=== PATIENT | female | born 1960 | race Caucasian/White ===

== ENCOUNTER 2023-02-18 20:49 | Outpatient (REF) | payer OTHER, SELFPAY ==
[2023-02-25 14:08] LABS: Age Gdln ACOG Testing Note (.); HPV Aptima Negative (Negative); IGP, Aptima HPV, rfx 16/18,45 Note (.)
== END 2023-02-18 20:50 | disposition home or self-care (01) ==
LOC: LAB 20:49
PROVIDERS: Visit Provider Obstetrics & Gynecology
DX: Z12.4 Encounter for screening for malignant neoplasm of cervix (principal)
CPT/HCPCS: 87624; G0145

== ENCOUNTER 2023-05-21 10:18 | Outpatient (OUT) | payer OTHER, SELFPAY ==
--- NOTE | 2023-05-21 10:21 | XR_ITS ---
[address] [address] Patient Name: DINO DUARTE MRN: [id number] date: 1960 Sex: F Assigned Patient Location: [facility] Current Patient Location: [facility] Accession/Order Number: [id number] Exam Date: 05/21/2023 10:30 Report Date: 05/21/2023 11:19 At the request of: RICHIE COELLO Procedure: XR DEXA axial skeleton EXAMINATION: XR DEXA axial skeleton HISTORY: Screening For Osteoporosis Z13.820 COMPARISON: DEXA bone densitometry 05/10/2021 TECHNIQUE: Dual-energy X-ray absorptiometry (DXA) was performed. FINDINGS: SPINE ANALYSIS: Average bone mineral density is 0.917 g/cm2. T-score (standard deviation relative to young adult mean): -2.2 . +0.4% change since prior study. HIP ANALYSIS: Lowest bone mineral density is within the right femoral neck, 0.708 g/cm2. T-score (standard deviation relative to young adult mean): -2.4 . -3.2% change since prior study. XR/XR DEXA axial skeleton IMPRESSION: World [employer] Classification: Osteopenia - Moderate Fracture Risk Electronically authenticated by: DOUGLAS OMALLEY Date: 05/21/2023 11:19
== END 2023-05-21 10:19 | disposition home or self-care (01) ==
LOC: RAD 10:18
PROVIDERS: PCP Internal Medicine; Visit Provider Obstetrics & Gynecology
DX: M85.80 Other specified disorders of bone density and structure, unspecified site (principal); Z13.820 Encounter for screening for osteoporosis; Z78.0 Asymptomatic menopausal state
CPT/HCPCS: 77080

== ENCOUNTER 2023-10-16 11:21 | Outpatient (OUT) | payer OTHER, SELFPAY ==
[2023-10-16 13:08] LABS: Anion Gap 12.8; BUN Creatinine Ratio 16.7; Bilirubin Total 0.8 mg/dL (0.2-1.0); Carbon Dioxide 28.2 mmol/L (21.0-32.0); Chloride 105 mmol/L (98-107); Estimated GFR (African America >60 (>=60); Estimated GFR (Non-African Ame >60 (>=60); Glucose 99 mg/dL (74-106); Sodium 142 mmol/L (136-145)
[2023-10-16 13:09] LABS: Alanine Aminotransferase 21 U/L (14-59); Albumin Globulin Ratio 1.3; Alkaline Phosphatase 80 U/L (46-116); Aspartate Amino Transferase 15 U/L (15-37); Chol HDL Ratio 2.6; Cholesterol 236 mg/dL (<=200); Globulin 3.1 g/dL; HDL Cholesterol 92 mg/dL (40-60); TSH W/ REFLEX FT4 1.149 uIU/mL (0.358-3.740); Total Protein 7.1 g/dL (6.4-8.2); Triglycerides 105 mg/dL (<=150)
== END 2023-10-16 11:22 | disposition home or self-care (01) ==
LOC: LAB 11:23
PROVIDERS: PCP Internal Medicine; Visit Provider Internal Medicine
DX: Z00.00 Encounter for general adult medical examination without abnormal findings (principal); E66.9 Obesity, unspecified
CPT/HCPCS: 36415; 80053; 80061; 84443

== ENCOUNTER 2024-02-25 19:32 | Outpatient (REF) | payer OTHER, SELFPAY ==
--- OUTSIDE RECORDS SUMMARY | 2024-02-25 19:37 | XMS_ITS | CCD ---
Author Organization [facility] Care Team Providers Care [employer] Black Belt Name Role Phone DR FLAVIO PEACOCK Primary Care Unavailable JONATHAN, DR HUNTER Consulting Unavailable DR FLAVIO PEACOCK Attending Unavailable DR FLAVIO PEACOCK Admitting Unavailable SHAHRAM, DR LUISITO Allison Consulting Unavailable Walter Perrin DO Primary Care Provider Unavail able ALANA BARTON Attending Unavailable TREY ANN Attending UnavailFLAVIO Markham Attending FLAVIO Barfield Attending FLAVIO Barfield Referring TREY Doll Attending Ananth burleson Medications Current Medications Medication Drug Class(es) Dates Sig (Normalized) Sig (Original) 24 hr metFORMIN hydrochloride 500 mg extended release oral tablet (1 source) Biguanide Start: 02-25-2023 End: 02-25-2024 take 1 tablet by mouth once daily at dinner metFORMIN XR (GLUCOPHAGE XR) 500 mg 24 hr tablet Take 1 tablet (500 mg total) by mouth daily with dinner. 0 02/25/2023 02/25/2024 Active sod sulf-pot chloride-mag sulf 1.479-0.188- 0.225 gram tablet (1 source) Start: 09-17-2023 sod sulf-pot chloride-mag sulf 1.479-0.188- 0.225 gram tablet Indications: Encounter for screening colonoscopy Please see instructional sheet given by physicians office. 24 tablet 0 09/17/2023 Active tiZANidine 4 mg oral tablet (1 source) Central alpha-2 Adrenergic Agonist tiZANidine (ZANAFLEX) 4 mg tablet as needed for muscle spasms. 0 Active zonisamide 25 mg oral capsule (1 source) Anti-epileptic Agent Start: 07-14-2023 End: 07-13-2024 take 1 capsule by mouth in the morning zonisamide (ZONEGRAN) 25 mg capsule Take 1 capsule (25 mg total) by mouth in the morning. 0 07/14/2023 07/13/2024 Active Problems Problem Classification Problem Date Documented Da te Episodic/Chronic Other screening for suspected conditions (not mental disorders or infectious disease) (5 sources) Encounter for screening mammogram for malignant neoplasm of breast; Translations: [Patient encounter status] Onset: 08-15-2022 Episodic Residual codes; unclassified (1 source) Family history of malignant neoplasm of other organs or systems; Translations: [FAM HX MALIG NEOPLASM OTH ORGN/SYS] Onset: 08-19-2022 Episodic Results Test Name Value Interpretation Reference Range Facil ity BI MAMMOGRAM SCREENING TOMOS YNTHESIS BILATERALon 10-23-2023 BI MAMMOGRAM SCREENING TOMOSYNTHESIS BILATERAL This is a summary report. The complete report is available in the patient's medical record. If you cannot access the medical record, please contact the sending organization for a detailed fax or copy. EXAMINATION: BI MAMMOGRAM SCREENING TOMOSYNTHESIS BILATERAL CLINICAL HISTORY:screening COMPARISON: August 15, 2022. RESULT: Digital mammography and 3D tomosynthesis of bilateral breasts was performed. Density: Almost entirely fatty [1] Overall appearance is stable. There is no suspicious mass, asymmetry, architectural distortion, or calcification IMPRESSION: BIRADS 1 - Negative Follow-up: Routine Screening Mamm Board Certified Radiologists. Accredited by the ACR and FDA. MAMMOGRAPHY IS VERY IMPORTANT TO YOUR HEALTH. THE [employer] SOCIETY GUIDELINES RECOMMEND THAT WOMEN 40 YEARS OF AGE AND OLDER SHOULD HAVE A MAMMOGRAM EVERY YEAR. A REMINDER LETTER WILL BE SENT AT THE APPROPRIATE TIME. THIS FACILITY UTILIZES A REMINDER SYSTEM TO ENSURE ALL PATIENTS RECEIVE REMINDER NOTIFICATIONS AT THE APPROPRIATE TIME BASED ON THE RECOMMENDATIONS OF THIS EXAM. THIS INCLUDES REMINDERS FOR ROUTINE SCREENING MAMMOGRAMS, DIAGNOSTIC MAMMOGRAMS IN WHICH THE PATIENT IS ASKED TO RETURN FOR ADDITIONAL VIEWS, OR OTHER BREAST IMAGING INTERVENTIONS WHEN APPROPRIATE. THE PATIENT WILL BE PLACED IN THE APPROPRIATE REMINDER SYSTEM INCLUDING A REMINDER AT THE APPROPRIATE TIME FOR ANY PENDING ADDITIONAL VIEWS. TRANSCRIBED BY: ELECTRONICALLY SIGNED BY: Garret Reyes MD Normal Not Available MG MAMM SCREEN 3D ALEKSANDR CADon 08-15-2022 MG MAMM SCREEN 3D ALEKSANDR CAD Patient: RAQUEL DUARTE Exam Date: 08/15/2022 : 1960 Gender:F Ordering : DR FLAVIO PEACOCK M.D. Admission #: [id number] Family : DR DURANEvan COELLO . Order #: [id number] CLICK HERE TO VIEW EXAM RADIOLOGY REPORT PROCEDURE: MAMMOGRAM SCREENING 3D BILATERAL CAD COMPARISON: MG MAMM SCREEN ALEKSANDR W CAD, 03/24/2020. MG MAMM SCREEN ALEKSANDR W CAD, 01/05/2019. DIGITIZED_MAMMO, 02/12/2011. MG MAMM SCREEN 3D ALEKSANDR CAD, 05/10/2021. INDICATIONS: Screening mammography Calculator Name NCI Breast Cancer Risk Assessment Tool 5 Year Breast Cancer Risk 0.90% Lifetime Breast Cancer Risk 4.90% Personal Breast Cancer No Personal Ovarian Cancer No Treatments None Family Cancers Aunt-maternal with brain cancer at age 60. LOCATION: [facility] BREAST COMPOSITION: Heterogeneously dense,which may obscure small masses. FINDINGS: DIAGNOSTIC CATEGORY 1--NEGATIVE. RIGHT BREAST: No significant suspicious finding. No significant change has occurred. LEFT BREAST: No significant suspicious finding. No significant change has occurred. RECOMMENDATIONS: ROUTINE MAMMOGRAM AND CLINICAL EVALUATION IN 12 MONTHS. PLEASE NOTE: A NORMAL MAMMOGRAM DOES NOT EXCLUDE THE POSSIBILITY OF BREAST CANCER. A CLINICALLY SUSPICIOUS PALPABLE LUMP SHOULD BE BIOPSIED. Dictated by: Luisito Parkinson M.D. on 08/16/2022 at 08:45 Approved by: Luisito Parkinson M.D. on 08/16/2022 at 09:29 Normal [facility] Vital Signs Date Time Vital Sign Value Performing Clinician Kierra vela 09-17-2023 14:27040 Body height 152.4 cm Janet CARRILLO Work Phone: [facility] 09-17-2023 14:27-0400 Body mass index (BMI) [Ratio] 29.96 kg/m2 Janet CARRILLO Work Phone: [facility] 09-17-2023 14:-040 Body weight 69.58 kg Janet CARRILLO Work Phone: [facility] 09-17-2023 14:27-0400 Diastolic blood pressure 77 mm[Hg] Janet CARRILLO Work Phone: [facility] 09-17-2023 14:27-0400 Systolic blood pressure 148 mm[Hg] Janet Tayo MUCKING MACHINE OPERATOR-RESOURCE ROOM TEACHER Work Phone: [facility] Encounters Encounter Date Encounter Type Care Provider Facility Start: 11-12-2023 End: 11-12-2023 ambulatory TREY Caroline SETH Not Available Start: 10-23-2023 End: 10-24-2023 ambulatory FLAVIO PEACOCK Not Available Start: 10-16-2023 End: 10-16-2023 ambulatory FLAVIO PEACOCK Not Available Start: 10-06-2023 End: 10-06-2023 ambulatory FLAVIO Melania PEACOCK Not Available Start: 09-26-2023 End: 09-26-2023 ambulatory TREY ANN Not Available Start: 09-17-2023 End: 09-17-2023 Patient encounter procedure Janet Cr MUCKING MACHINE OPERATOR-RESOURCE ROOM TEACHER Work Phone: [facility] Comment on above: Encounter for screen ing colonoscopy (Primary Dx) Start: 07-14-2023 End: 07-14-2023 ambulatory ALANA BARTON Not Available Start: 08-15-2022 End: 08-16-[address] FLAVIO PEACOCK Facility: Plan of Treatment Date Care Activity Detail Author Start: 09-16-2024 Adult BMI Screening Adult BMI Screen ing [facility] Start: 10-10-2023 End: 10-10-2023 Admission to same day surgery center 10/10/2023 10:45 AM EDT - 10/10/2023 11:15 AM EDT Surgery [facility] Surgery [address] [place] [address] Tanika Dunn MD [address] [place] [address] COLONOSCOPY DIAGNOSTIC / SCREENING [29717 (CPT )] [facility] Comment on above: COLONOSCOPY DIAGNOST IC / SCREENING [62871 (CPT )] Start: 10-10-2023 End: 10-10-2023 Colonoscopy flx dx w/collj spec when pfrmd COLONOSCOPY DIAGNOSTIC / SCREENING Screen for colon cancer 10/10/2023 10:45 AM EDT [facility] Start: 10-10-2023 Subsequent hospital visit by physician 10/10/2023 10:45 AM EDT Hospital Encounter [facility] Surgery [address] [place] [id number] Tanika Dunn MD [address] [place] [address] [facility] Start: 10-02-2023 End: 10-02-2023 ambulatory 10/02/2023 2:50 PM EDT Support Visit [facility] - Pre Admit [address] [place] [id number] [facility] - Pre Admit Start: 02-21-2023 COVID-19 Vaccine ( season) COVID-19 Vaccine ( season) [facility] Start: 02-21-2023 Influenza vaccination Influenza Vacc ine [facility] Start: 1982 Screening for malign ant neoplasm of cervix Pap Smear [facility] Start: 1980 DTaP,Tdap and Td Vaccines (1 - Tdap) DTaP,Tdap and Td Vaccines (1 - Tdap) [facility] Start: 09-30-1979 Adult BMI Follow Up Plan Adult BMI Follow Up Plan [facility] Start: 1973 Depression Screening Depression Scre ening [facility] Start: 1973 Tobacco Screening Tobacco Screening [facility] End: 09-16-2024 Colonoscopy Colonoscopy GI Routine Encounter for screening colonoscopy 1 Occurrences starting 09/17/2023 until 09/16/[address] [facility] Work Phone: Comment on above: 1 Occurrences starti ng 09/17/2023 until 09/16/2024 Immunizations Immunization Date Immunization Notes Care Provider Fa cility 05-07-2022 influenza virus vaccine, unspecified formulation Janet Cr MUCKING MACHINE OPERATOR-RESOURCE ROOM TEACHER Work Phone: [facility] Payers Date Payer Category Payer Unknown [facility] [id number] 2023-Present [phone] [address] [place] [address] [id number] 2022 Unknown [id number] 1960 Unknown [id number] 1960 Unknown [id number] 1960 Unknown [id number] 1960 Unknown [id number] 1960 Unknown [id number] 1960 Unknown [id number] 1960 Unknown [id number] 259 Social History Date Type Detail Facility Start: 09-17-2023 Tobacco smoking stat [facility] Ex-smoker [facility] End: 06-23-2011 History of tobacco use Current smoker [facility] End: 06-23-2011 History of tobacco use Cigarette Smoker [facility] Start: 09-17-2023 Tobacco use and exposure Smokeless tobacco non-user [facility] Start: 09-17-2023 Alcohol intake Current drinke r of alcohol (finding) [facility] Start: 08-03-2020 End: 09-17-2023 History of Social function [facility] Start: 08-03-2020 End: 09-17-2023 Tobacco use panel [facility] Unknown [facility] Start: 09-17-2023 Alcohol Comment social [facility] Start: 1960 Sex Assigned At Not on file P [facility] History of Present illness Narrative 09-17-2023 Janet Cr, MUCKING MACHINE OPERATOR-RESOURCE ROOM TEACHER - 09/17/2023 2:30 PM EDT Note Date & Type Note Facility 09-17-2023 History of Presen t illness Narrative Chief Complaint: Colon cancer screening History of Present Illness Raquel Duarte is a 62 y.o. female who presents to the office for colon cancer screening. Her last colonoscopy was in [address] Bronson and was normal. She denies any changes in his bowels including diarrhea, constipation, abdominal pain, melena, hematochezia, unexplained weight loss. There is no family history of colon cancer. Review of Systems Constitutional: Negative for fever and unexpected weight change. HENT: Negative for trouble swallowing. Respiratory: Negative for shortness of breath. Cardiovascular: Negative for chest pain. Gastrointestinal: Negative for nausea, vomiting, abdominal pain, diarrhea, constipation, blood in stool and black tarry stool. Genitourinary: Negative for dysuria and difficulty urinating. Musculoskeletal: Negative for gait problem. Skin: Negative for rash and wound. Neurological: Negative for dizziness, weakness and light-headedness. Hematological: Does not bruise/bleed easily. Psychiatric/Behavioral: Negative for confusion. Past Medical History: Diagnosis Date Migraines Past Surgical History: Procedure Laterality Date HYSTERECTOMY No Known Allergies Current Outpatient Medications: metFORMIN XR (GLUCOPHAGE XR) 500 mg 24 hr tablet, Take 1 tablet (500 mg total) by mouth daily with dinner., Disp: , Rfl: tiZANidine (ZANAFLEX) 4 mg tablet, as needed for muscle spasms., Disp: , Rfl: zonisamide (ZONEGRAN) 25 mg capsule, Take 1 capsule (25 mg total) by mouth in the morning., Disp: , Rfl: sod sulf-pot chloride-mag sulf 1.479-0.188- 0.225 gram tablet, Please see instructional sheet given by physicians office., Disp: 24 tablet, Rfl: 0 Social History Socioeconomic History Marital status: Spouse name: Not on file Number of children: Not on file Years of education: Not on file Highest education level: Not on file Occupational History Not on file Tobacco Use Smoking status: Former Types: Cigarettes Quit date: 2011 Years since quittin.2 Smokeless tobacco: Never Vaping Use Vaping Use: Never used Substance and Sexual Activity Alcohol use: Yes Comment: social Drug use: Never Sexual activity: Defer Other Topics Concern Not on file Social History Narrative Not on file Social Determinants of Health Financial Resource Strain: Not on file Food Insecurity: Not on file Transportation Needs: Not on file Physical Activity: Not on file Stress: Not on file Social Connections: Not on file Interpersonal Safety: Not on file Housing Instability: Not on file Family History Problem Relation Age of Onset Cervical cancer Sister Cerebral aneurysm Son Objective Physical Exam Constitutional: General: She is not in acute distress. Appearance: Normal appearance. She is not ill-appearing. HENT: Head: Normocephalic and atraumatic. Mouth/Throat: Mouth: Mucous membranes are moist. Eyes: Pupils: Pupils are equal, round, and reactive to light. Cardiovascular: Rate and Rhythm: Normal rate. Pulmonary: Effort: Pulmonary effort is normal. No respiratory distress. Abdominal: General: There is no distension. Palpations: Abdomen is soft. Musculoskeletal: General: Normal range of motion. Skin: General: Skin is warm and dry. Neurological: Mental Status: She is alert and oriented to person, place, and time. Mental status is at baseline. Vital Signs: Blood pressure 148/77, height 152.4 cm (5'), weight 69.6 kg (153 lb 6.4 oz). Respiratory Source: No data recorded Admission Weight: Weight: 69.6 kg (153 lb 6.4 oz) Labs No results found for: WBC , HGB , HCT , MCV , PLT No results found for: GLU , CALCIUM , NA , K , CO2 , CL , BUN , CREATININE No results found for: AMYLASE No results found for: LIPASE No results found for: ALT , AST , GGT , ALKPHOS , LABBILI No results found for: INR , PROTIME Assessment Raquel Duarte is a 62 y.o.female who presents to the office for screening colonoscopy. Plan Colonoscopy with possible biopsy and/or polypectomy. Risks, benefits, and alternatives discussed with patient. Educated on bowel evacuation preparation. Patient verbalizes understanding and wishes to proceed. Evaluation included: Preparing to see the patient (e.g., review of tests) Obtaining and/or reviewing separately obtained history Performing a medically appropriate examination and/or evaluation Counseling and educating the patient/family/caregiver Referring and communicating with other health live in caregiver Encounter for screening colonoscopy [Z12.11] [facility] KEE [facility] [place] This note was created with the assistance of a speech recognition program. While intending to generate a timely document that accurately reflects the content of the visit, no guarantee can be provided that every grammatical or spelling mistake has been or will be identified or corrected. Thank you for your understanding. GERARDO Kee 09/17/23 1452 documented in this encounter [employer] Evaluation note Note Date & Type Note Facility Evaluation note Diagnosis Encounter for screening colonoscopy- Primary Screen for colon cancer Special screening for malignant neoplasms, colon documented in this encounter [facility] Instructions Note Date & Type Note Facility Instructions Not on filedocumented in this en counter [facility] Summary Purpose Family History No Family History Records FoundNo Family History Records Found Advance Directives No Advanced Directives Records FoundNo Advanced Directives Records Found Additional Source Comments INFORMATION SOURCE (unrecogn ized section and content) DATE CREATED AUTHOR 08/20/2022 [facility] DATE CREATED AUTHOR AUTHOR'S ORGANIZ ATION 11/15/2023 [facility] EPIC Reason for Visit (unrecogniz ed section and content) Reason Comments Colon Cancer Screening 10 YEAR RECALL Specialty Diagnoses / Procedures Referred By Raine sanchez Referred To Contact General Surgery Diagnoses Encounter for screening for malignant neoplasm of colon Procedures [place] OFFICE OUTPATIENT VISIT 60-74 MINS HIGH MDM AMB REFERRAL TO GENERAL SURGERY Flavio Peacock MD [address] [facility] [address] [place] [address] [place] [address] [place] [id number] Referral ID Status Reason Start Date Expiration Date Visits Re quested Visits Authorized [id number] Closed 08/25/2023 02/21/2024 1 1 Care Teams (unrecognized sec tion and content) Le[employer] Black Belt Relationship Specialty Start Date End Date WasWalter cruz DO PCP - General Family Medicine 01/24/17 FOR RECORDS PERTAINING TO PATIENTS WHO ARE OR HAVE BEEN ENROLLED IN A CHEMICAL DEPENDENCY/SUBSTANCEABUSE PROGRAM, SOME INFORMATION MAY BE OMITTED. This clinical summary was aggregated from multiple sources. Caution should be exercised in using it in the provision of clinical care. This summary normalizes information from multiple sources, and as a consequence, information in this document may materially change the coding, format and clinical context of patient data. In addition, data may be omitted in some cases. CLINICAL DECISIONS SHOULD BE BASED ON THE PRIMARY CLINICAL RECORDS. [employer] [facility]. provides no warranty or guarantee of the accuracy or completeness of information in this document.
[2024-03-01 10:07] LABS: Age Gdln ACOG Testing Note (.); HPV Aptima Negative (Negative); IGP, Aptima HPV, rfx 16/18,45 Note (.)
== END 2024-02-25 19:33 | disposition home or self-care (01) ==
LOC: LAB 19:32
PROVIDERS: PCP Internal Medicine; Visit Provider Obstetrics & Gynecology
DX: Z01.419 Encounter for gynecological examination (general) (routine) without abnormal findings (principal)
CPT/HCPCS: 87624; 88175

== ENCOUNTER 2024-07-14 08:40 | Outpatient (OUT) | payer OTHER, SELFPAY ==
--- NOTE | 2024-07-14 08:43 | MR_ITS ---
[address] [address] Patient Name: DINO DUARTE MRN: [facility]:[id number] date: 1960 Sex: F Assigned Patient Location: MRI Current Patient Location: MRI Accession/Order Number: [id number] Exam Date: 07/14/2024 09:00 Report Date: 07/14/2024 11:53 At the request of: TREY ANN Procedure: MR head/brain wo con EXAM: MR head/brain wo con, MR angio head wo con CLINICAL INDICATION: Intractable Chronic Migraine Without Aura COMPARISON: MRI brain 08/12/2013. TECHNIQUE/PROTOCOL: 1) Standard without and with contrast brain MRI performed. 2) 3D brain MRA performed. 3D reconstructions were performed to evaluate vascular anatomy. CONTRAST: None. FINDINGS: BRAIN: No restricted diffusion, extra-axial fluid collection, hydrocephalus, midline shift, or other mass effect. Intracranial flow voids are maintained. Multiple scattered small hyperintense T2/FLAIR periventricular and subcortical foci are nonspecific. Normal midline structures. Normal marrow signal. No soft tissue abnormalities. Mild scattered paranasal sinus mucosal thickening. Trace bilateral mastoid effusions. VASCULATURE: Intracranial ICAs: Patent bilaterally from the skull base to the carotid terminus. MCAs: Normal bilaterally. ACAs: Normal bilaterally. P-Comms: Visualized bilaterally. Vertebral arteries: Normal to the confluence with the basilar artery. Left dominant vertebral system. Basilar artery: Normal. pad cutter: Normal bilaterally. Aneurysm: None. MR/MR head/brain wo con IMPRESSION: 1. No acute intracranial process. 2. Normal MRA of the head. No intracranial aneurysm. 3. Multiple scattered small hyperintense T2/FLAIR periventricular and subcortical foci are nonspecific and could reflect chronic microvascular angiopathic changes and/or sequela of migraine headaches. Electronically authenticated by: COLIN PANCHAL Date: 07/14/2024 11:53
--- OUTSIDE RECORDS SUMMARY | 2024-07-14 08:52 | XMS_ITS | CCD ---
Author Organization [facility] Care Team Providers Care Pc Technician Name Role Phone DR FLAVIO PEACOCK Primary Care Unavailable JONATHAN, DR HUNTER Consulting Unavailable JONATHAN, DR HUNTER Attending Unavailable JONATHAN, DR HUNTER Admitting Unavailable ZIEBER, DR LUISITO Allison Consulting Unavailable Walter Perrin DO Primary Care Provider Unavail Flavio Lopez MD Primary Care Provider ALANA BARTON Attending SU Doll Attending UnavailFLAVIO Markham Attending Unavailable FLAVIO PEACOCK Attending FLAVIO Barfield Referring Unavailable SU ANN Attending Unavailab SU Oneill Attending Unavailab RICHIE Garza Attending Unavailable SU ANN Attending Helioab SU Oneill Referring Unavailab JUAN Mcdermott Attending Unavailable SU ANN Attending JUAN Mancilla Attending Unavailable Medications Current Medications Medication Drug Class(es) Dates Sig (Normalized) Sig (Original) amoxicillin 875 mg / clavulanate 125 mg oral tablet (3 sources) Penicillin-class Antibacterial Start: 04-20-2024 End: 04-30-2024 take 1 tablet by mouth in the morning amoxicillin-clavul anate (Augmentin) 875-125 MG tablet Indications: Acute non-recurrent pansinusitis Take 1 tablet (875 mg) by mouth in the morning and 1 tablet (875 mg) before bedtime. Do all this for 10 days. 20 tablet 04/20/2024 04/30/2024 Active azithromycin 250 mg oral tablet (3 sources) Macrolide Antimicrobial Start: 06-30-2024 End: 07-05-2024 take 2 tablets by mouth once daily, then take 1 tablet by mouth once daily azithromycin (Zithromax) 250 MG tablet Indications: Acute non-recurrent pansinusitis Take 2 tablets (500 mg) by mouth Daily for 1 day, THEN 1 tablet (250 mg) Daily for 4 days. 6 tablet 06/30/2024 07/05/2024 Active Start: 04-27-2024 End: 05-02-2024 take 2 tablets by mouth once daily, then take 1 tablet by mouth once daily azithromycin (Zithromax) 250 MG tablet Indications: Acute non-recurrent pansinusitis Take 2 tablets (500 mg) by mouth Daily for 1 day, THEN 1 tablet (250 mg) Daily for 4 days. 6 tablet 04/27/2024 05/02/2024 Active 1 ml galcanezumab-gnlm 120 mg/ml auto-injector (10 sources) Start: 02-26-2024 End: 02-25-2025 galcanezumab (Emgality) 120 MG/ML auto-injector Indications: Intractable chronic migraine without aura and without status migrainosus (CMS/HCC) Inject 1 Syringe (120 mg) under the skin every 30 (thirty) days 3 each 3 02/26/2024 02/25/2025 Active 24 hr metFORMIN hydrochloride 500 mg extended release oral tablet (1 source) Biguanide Start: 02-25-2023 End: 02-25-2024 take 1 tablet by mouth once daily at dinner metFORMIN XR (GLUCOPHAGE XR) 500 mg 24 hr tablet Take 1 tablet (500 mg total) by mouth daily with dinner. 0 02/25/2023 02/25/2024 Active methylPREDNISolone (5 sources) Corticosteroid Start: 06-30-2024 End: 07-07-2024 methylPREDNISolone (Medrol Dospak) 4 MG tablets Indications: Acute non-recurrent pansinusitis Follow schedule on package instructions 21 tablet 06/30/2024 07/07/2024 Active Start: 04-20-2024 End: 04-27-2024 methylPREDNISolone (Medrol D ospak) 4 MG tablets Indications: Acute non-recurrent pansinusitis Follow schedule on package instructions 21 tablet 04/20/2024 04/27/2024 Active sod sulf-pot chloride-mag sulf 1.479-0.188- 0.225 gram tablet (1 source) Start: 09-17-2023 sod sulf-pot chloride-mag sulf 1.479-0.188- 0.225 gram tablet Indications: Encounter for screening colonoscopy Please see instructional sheet given by physicians office. 24 tablet 0 09/17/2023 Active SUMAtriptan 100 mg oral tablet (14 sources) Serotonin-1b and Serotonin-1d Receptor Agonist Start: 02-02-2024 take 1 tablet by mouth once daily as needed for headache SUMAtriptan (Imitrex) 100 MG tablet Indications: Migraine with aura and without status migrainosus, not intractable (CMS/HCC) TAKE 1 TABLET BY MOUTH ONE TIME NEEDED AT ONSET OF HEADACHE; ( MAX TWO TIMES PER DAY AND NO MORE THAN THREE DAYS IN A WEEK) 9 tablet 11 02/02/2024 Active tiZANidine 4 mg oral tablet (1 [...] in the morning. 0 07/14/2023 07/13/2024 Active Completed/Discontinued Medications Medication Drug Class(es) Dates Sig (Normalized) Sig (Original) onabotulinumtoxina 200 unt injection (17 sources) Acetylcholine Release Inhibitor Start: End: onabotulinumtoxinA (Botox) injection 200 Units Start: 06-04-2024 End: 06-04-2024 inject 200 [IU] by intramuscular injection once 200 Units, Intramuscular, Once, On Fri06/04/24 at 1100, For 1 dose, Charging context for this clinic-administered medication: Medically Necessary/Insurance Start: 02-26-2024 End: 02-26-2024 onabotulinumtoxinA (Botox) i njection 200 Units Start: 02-26-2024 End: 02-26-2024 inject 200 [IU] by intramuscular injection once 200 Units, Intramuscular, Once, On Mireya 02/26/24 at 1345, For 1 dose, Charging context for this clinic-administered medication: Medically Necessary/Insurance Onabotulinumtoxi nA (BOTOX IM) Inject into the shoulder, thigh, or buttocks Active meclizine hydrochloride 12.5 mg oral tablet (3 sources) Antiemetic Start: 08-25-2023 End: 02-25-2024 take 1 tablet by mouth every twelve hours as needed meclizine (Antivert) 12.5 MG tablet Indications: Dizziness TAKE ONE TABLET BY MOUTH EVERY 12 HOURS NEEDED 60 tablet 3 08/25/2023 02/25/2024 Discontinued Problems Active Problems Problem Classification Problem Date Documented Da te Episodic/Chronic Headache; including migraine (20 sources) Migraine with aura; Translations: [Migraine with aura, not intractable, without status migrainosus] Onset: 01-09-2023 01-09-2023 Chronic Osteoporosis (14 sources) Osteoporosis; Translations: [Age-related osteoporosis without current pathological fracture] Onset: 01-09-2023 01-09-2023 Chronic Other inflammatory condition of skin (14 sources) Psoriasis vulgaris; Translations: [Psoriasis vulgaris] Onset: 01-09-2023 01-09-2023 Chronic Other screening for suspected conditions (not mental disorders or infectious disease) (5 sources) Encounter for screening mammogram for malignant neoplasm of breast; Translations: [Patient encounter status] Onset: 08-15-2022 Episodic Other upper respiratory infections (5 sources) Acute pansinusitis; Translations: [Acute pansinusitis, unspecified] 04-20-2024 Episodic Residual codes; unclassified (1 source) Family history of malignant neoplasm of other organs or systems; Translations: [FAM HX MALIG NEOPLASM OTH ORGN/SYS] Onset: 08-19-2022 Episodic Residual codes; unclassified (3 sources) Family history of aneurysm of artery; Translations: [Family history of ischemic heart disease and other diseases of the circulatory system] 06-04-2024 Episodic Past or Other Problems Problem Classification Problem Date Documented Da te Episodic/Chronic Residual codes; unclassified (14 sources) Insomnia; Translations: [Insomnia, unspecified] Onset: 01-09-2023 01-09-2023 Episodic Results Test Name Value Interpretation Reference Range Facility IGP,APTIMA HPV,AGE GDLNon AGE GDLN ACOG TESTING Note . [facility] Comment on above: TESTS RESULT FLAG UN ITS REF RANGE LAB Clinician Provided Cytology Information Source.............Vagina No. of containers..01 ThinPrep Vial Age Anastasia OTOOLE Feli... 31 FLAG LEGEND: L-Low Normal,H-High Normal,LL-Alert Low,HH-Alert High <-Panic Low,>-Panic High,A-Abnormal,AA-Critical Abnormal Performed at: 01 =G [address] [place] [address] Pratibha Mccauley MD, HPV APTIMA Negative Negative [facility] Comment on above: This nucleic acid am plification test detects fourteen high- risk HPV types (16,18,31,33,35,39,45,51,52,56,58,59,66,68) without differentiation. Performed at: =G - [address] [id number] Automated Manufacturing Instructor: Pratibha Mccauley MD, Phone: [phone] Performed at: - [address] [id number] [employer] Instructor: Pratibha Mccauley MD, Phone: [phone] IGP, APTIMA HPV, RFX 16/18,45 Note . [facility] Comment on above: TESTS RESULT FLAG UN ITS REF RANGE LAB DIAGNOSIS: 02 NEGATIVE FOR INTRAEPITHELIAL LESION OR MALIGNANCY. Specimen adequacy: 02 Satisfactory for evaluation. Performed by: 02 Erica Del Angel, Dough Mixer ([facility]) . 02 Note: Note 02 The Pap smear is a screening test designed to aid in the detection of premalignant and malignant conditions of the uterine cervix. It is not a diagnostic procedure and should not be used as the sole means of detecting cervical cancer. Both false-positive and false-negative reports do occur. Test Methodology: Note 02 This liquid based ThinPrep(R) pap test was screened with the use of an image guided system. HPV Genotype Reflex Note 02 Criteria not met, HPV Genotype not performed. FLAG LEGEND: L-Low Normal,H-High Normal,LL-Alert Low,HH-Alert High <-Panic Low,>-Panic High,A-Abnormal,AA-Critical Abnormal Performed at: [address] [address] Pratibha Mccauley MD, SPATULA-ALONE VAGINA [facility] MAMMO[facility] SCREENING TOMOS YNTHESIS BILATERALon 10-23-2023 [...] IS VERY IMPORTANT TO YOUR HEALTH. THE [place] GUIDELINES RECOMMEND THAT WOMEN 40 [...] : DR FLAVIO PEACOCK M.D. Admission #: [id number] Family : DR RICHIE MACE . Order #: [id number] CLICK HERE TO VIEW EXAM RADIOLOGY REPORT [...] brain cancer at age 61. LOCATION: [facility] BREAST COMPOSITION: Heterogeneously dense,which may obscure small [...] Parkinson M.D. on 08/16/2022 at 09:29 Normal [facility] Vital Signs Date Time Vital Sign Value Performing Clinician Facility 06-30-2024 10:41-0500 Body height 152.4 cm Juanhattie Tiwari [employer] Work Phone: [facility] 06-30-2024 10:41-0500 Body mass index (BMI) [Ratio] 30.74 kg/m2 Juan Karie [employer] Work Phone: [facility] 06-30-2024 10:41-0500 Body weight 71.4 kg Juan Hampton [employer] Work Phone: [facility] 06-30-2024 10:41-0500 Diastolic blood pressure 84 mm[Hg] Juan Hampton [employer] Work Phone: [facility] 06-30-2024 10:41-0500 Heart rate 81 /min Juan Tiwari [employer] Work Phone: [facility] 06-30-2024 10:41-0500 Respiratory rate 16 /min Juan Tiwari [employer] Work Phone: [facility] 06-30-2024 10:41-0500 SaO2% (BldA) [Mass fraction] 97 % Juan Tiwari [employer] Work Phone: [facility] 06-30-2024 10:41-0500 Systolic blood pressure 122 mm[Hg] Juan Karie [employer] Work Phone: [facility] 06-04-2024 11:00-0500 Body height 152.4 cm Su Ann [employer] Work Phone: [facility] 06-04-2024 11:00-0500 Body mass index (BMI) [Ratio] 30.86 kg/m2 Su Cleaningi [employer] Work Phone: [facility] 06-04-2024 11:00-0500 Body weight 71.67 kg Su Cleaningi [employer] Work Phone: [facility] 06-04-2024 11:00-0500 Diastolic blood pressure 82 mm[Hg] Su Blacki [employer] Work Phone: [facility] 06-04-2024 11:00-0500 Systolic blood pressure 120 mm[Hg] Su Blacki [employer] Work Phone: [facility] 04-20-2024 10:25-0400 Body height 152.4 cm Juan Hampton [employer] Work Phone: [facility] 04-20-2024 10:25-0400 Body mass index (BMI) [Ratio] 30.47 kg/m2 Juan Floresvely [employer] Work Phone: [facility] 04-20-2024 10:25-0400 Body temperature 97.5 [degF] Juan Karie [employer] Work Phone: [facility] 04-20-2024 10:25-0400 Body weight 70.76 kg Juan Floresvely [employer] Work Phone: [facility] 04-20-2024 10:25-0400 Diastolic blood pressure 72 mm[Hg] Juan Karie [employer] Work Phone: [facility] 04-20-2024 10:25-0400 Heart rate 89 /min Juan Hampton [employer] Work Phone: [facility] 04-20-2024 10:25-0400 SaO2% (BldA) [Mass fraction] 98 % Juan Hampton [employer] Work Phone: [facility] 04-20-2024 10:25-0400 Systolic blood pressure 126 mm[Hg] Juan Floresvely [employer] Work Phone: [facility] 02-26-2024 13:45-0400 Body height 152.4 cm Su Eulogiooji [employer] Work Phone: [facility] 02-26-2024 13:45-0400 Body mass index (BMI) [Ratio] 30.08 kg/m2 Su Eulogiooji [employer] Work Phone: [facility] 02-26-2024 13:45-0400 Body weight 69.85 kg Su Ann [employer] Work Phone: [facility] 02-26-2024 13:45-0400 Diastolic blood pressure 88 mm[Hg] Su Ann [employer] Work Phone: [facility] 02-26-2024 13:45-0400 Systolic blood pressure 148 mm[Hg] Su Ann [employer] Work Phone: [facility] 02-25-2024 13:51-0400 Body height 152.4 cm Richie Nakita DO Work Phone: [facility] 02-25-2024 13:51-0400 Body mass index (BMI) [Ratio] 30.27 kg/m2 Richie Nakita DO Work Phone: [facility] 02-25-2024 13:51-0400 Body weight 70.31 kg Richie Nakita DO Work Phone: [facility] 02-25-2024 13:51-0400 Diastolic blood pressure 84 mm[Hg] Richie Nakita DO Work Phone: [facility] 02-25-2024 13:51-0400 Systolic blood pressure 132 mm[Hg] Richie Nakita DO Work Phone: [facility] 09-17-2023 14:27-0400 Body height 152.4 cm Janet Smitholl CONCRETE POINTER-LANGUAGE TEACHER Work Phone: [facility] 09-17-2023 14:27-0400 Body mass index (BMI) [Ratio] 29.96 kg/m2 Janet Smitholl CONCRETE POINTER-LANGUAGE TEACHER Work Phone: [facility] 09-17-2023 14:27-0400 Body weight 69.58 kg Janet Smitholl CONCRETE POINTER-LANGUAGE TEACHER Work Phone: [facility] 09-17-2023 14:27-0400 Diastolic blood pressure 77 mm[Hg] Janet Smitholl CONCRETE POINTER-LANGUAGE TEACHER Work Phone: [facility] 09-17-2023 14:27-0400 Systolic blood pressure 148 mm[Hg] Janet Cr CONCRETE POINTER-LANGUAGE TEACHER Work Phone: [facility] Encounters Encounter Date Encounter Type Care Provider Facility Start: 06-30-2024 End: 06-30-2024 Bamboo flowsheet Juan Tiwari [employer] Work Phone: [facility] Start: 06-30-2024 End: 06-30-2024 Bamboo flowsheet Juan Tiwari [employer] Work Phone: [facility] Start: 06-30-2024 End: 06-30-2024 ambulatory JUAN TIWARI Not Available Start: 06-30-2024 End: 06-30-2024 Office outpatient visit 25 minutes Juan Tiwari [employer] Work Phone: [facility] Comment on above: Acute non-recurrent pansinusitis (Primary Dx) Start: 06-04-2024 End: 06-04-2024 Bamboo flowsheet Su Ann [employer] Work Phone: [facility] Start: 06-04-2024 End: 06-04-2024 Bamboo flowsheet Su Ann [employer] Work Phone: [facility] Start: 06-04-2024 End: 06-04-2024 Office outpatient visit 15 minutes Su Ann [employer] Work Phone: [facility] Comment on above: Intractable chronic migraine without aura and without status migrainosus (CMS/HCC) (Primary Dx); Family history of brain aneurysm Start: 06-04-2024 End: 06-04-2024 ambulatory SU ANN Not Available Start: 04-27-2024 End: 04-27-2024 Orders Only Juan Tiwari [employer] Work Phone: [facility] Comment on above: Acute non-recurrent pansinusitis (Primary Dx) Start: 04-20-2024 End: 04-20-2024 Bamboo flowsheet Juan Tiwari [employer] Work Phone: [facility] Start: 04-20-2024 End: 04-20-2024 Bamboo flowsheet Juan Tiwari [employer] Work Phone: [facility] Start: 04-20-2024 End: 04-20-2024 Office outpatient visit 25 minutes Juan Tiwari [employer] Work Phone: [facility] Comment on above: Acute non-recurrent pansinusitis (Primary Dx) Start: 04-20-2024 End: 04-20-2024 ambulatory JUAN TIWARI Not Available Start: 02-26-2024 End: 02-26-2024 Office outpatient visit 15 minutes Su Ann [employer] Work Phone: [facility] Comment on above: Intractable chronic migraine without aura and without status migrainosus (CMS/HCC) Start: 02-26-2024 End: 02-26-2024 ambulatory SU ANN Not Available Start: 02-25-2024 End: 02-25-2024 Bamboo flowsheet Richie Nakita DO Work Phone: [facility] Start: 02-25-2024 End: 03-01-2024 Bamboo flowsheet Richie Nakita DO Work Phone: [facility] Start: 02-25-2024 End: 03-01-2024 Clinisync Result Encounter Generic External Data Provider [facility] Unsolicited Start: 02-25-2024 End: 02-25-2024 Patient encounter procedure Richie Nakita DO Work Phone: [facility] Start: 02-25-2024 End: 02-25-2024 Periodic preventive med est patient 40-64yrs Richie Nakita DO Work Phone: [facility] Comment on above: Well woman exam with routine gynecological exam Start: 02-25-2024 End: 02-25-2024 ambulatory RICHIE NAKITA Not Available Start: 12-30-2023 End: 12-30-2023 ambulatory SU ANN Not Available Start: 11-12-2023 End: 11-12-2023 ambulatory SU ANN Not Available Start: 10-23-2023 End: 10-23-2023 ambulatory FLAVIO PEACOCK Not Available Start: 10-16-2023 End: 10-16-2023 ambulatory FLAVIO PEACOCK Not Available Start: 10-06-2023 End: 10-06-2023 ambulatory FLAVIO PEACOCK Not Available Start: 09-26-2023 End: 09-26-2023 ambulatory SU CLEANINGMilena Not Available Start: 09-17-2023 End: 09-17-2023 Patient encounter procedure Janet Cr CONCRETE POINTER-LANGUAGE TEACHER Work Phone: [facility] Comment on above: Encounter for screen ing colonoscopy (Primary Dx) Start: 07-14-2023 End: 07-14-2023 ambulatory ALANA BARTON Not Available Start: 08-15-2022 End: 08-16-[address] FLAVIO PEACOCK Facility: Procedures Date Procedure Procedure Detail Performing Clinician Start: 02-25-2024 IGP,APTIMA HPV,AGE GDLN Richie Nakita DO Work Phone: Start: 10-23-2023 Mammography Richie Fazi o DO Work Phone: Start: 10-10-2023 Colonoscopy Richie Fazi o DO Work Phone: Plan of Treatment Date Care Activity Detail Author Start: 10-09-2033 Screening for malign ant neoplasm of colon [facility] Start: 03-01-2025 End: 03-01-2025 Patient encounter procedure 03/01/2025 2:00 PM EDT Office Visit [facility] [address] [place] [address] Richie Mace, DO [address] [place] [address] [facility] Start: 10-22-2024 Screening for malign ant neoplasm of breast Mammogram [facility] Start: 09-16-2024 Adult BMI Screening Adult BMI Screen ing [facility] Start: 09-02-2024 End: 09-02-2024 Patient encounter procedure 09/02/2024 2:15 PM EDT Procedure Visit [facility] [address] [place] [address] Su Ann, [employer] [address] [place] [address] [place] [address], [place] [id number] [facility] Start: 07-21-2024 End: 07-21-2024 Telemedicine consultation with patient 07/21/2024 3:00 PM EST Telemedicine [facility] [id number] [facility] [address] [place] [address], [place] [id number] Su Ann NP [address] [place] [place] [address], [place] [id number] [facility] [address] Start: 06-04-2024 End: 06-04-2025 MR Brain WO contrast MR brain wo contrast Imaging STAT Intractable chronic migraine without aura and without status migrainosus (CMS/HCC) Family history of brain aneurysm Expected: 06/04/2024, Expires: 06/04/2025 [facility] Work Phone: Comment on above: Expected: 06/04/2024 , Expires: 06/04/2025 Start: 06-04-2024 End: 06-04-2025 MRA Head vessels WO contrast MR angiogram head wo IV contrast Imaging STAT Intractable chronic migraine without aura and without status migrainosus (CMS/HCC) Family history of brain aneurysm Expected: 06/04/2024, Expires: 06/04/2025 [facility] Comment on above: Expected: 06/04/2024 , Expires: 06/04/2025 Start: 06-04-2024 End: 06-04-2024 Patient encounter procedure [facility] Comment on above: Arrived Start: 04-20-2024 End: 04-20-2024 Patient encounter procedure 04/20/2024 10:30 AM EDT Office Visit [facility] [address] [place] [phone] Juan Tiwari NP [address] [place] [address] Arrived [facility] Comment on above: Arrived Start: 02-26-2024 End: 02-26-2024 Patient encounter procedure 02/26/2024 1:30 PM EDT Procedure Visit [facility] [address] [place] [phone] Su Ann, [employer] [address] Rossi [address] [place] [id number] [facility] Start: 02-25-2024 End: 02-25-2024 Patient encounter procedure 02/25/2024 1:40 PM EDT Office Visit [facility] [address] [place] [address] Richie Mace, [address] [place] [address] Arrived [facility] Comment on above: Arrived Start: 02-22-2024 Influenza vaccination Influenza Vacc ine (#1) [facility] Start: 10-10-2023 End: 10-10-2023 Admission to same day surgery center 10/10/2023 10:45 AM EDT - 10/10/2023 11:15 AM EDT Surgery [facility] [address] [place] [phone] Tanika Dunn MD [address] [place] [phone] COLONOSCOPY DIAGNOSTIC / SCREENING [59111 (CPT )] [facility] Comment on above: COLONOSCOPY DIAGNOST IC / SCREENING [65637 (CPT )] Start: 10-10-2023 End: 10-10-2023 Colonoscopy flx dx w/collj spec when pfrmd COLONOSCOPY DIAGNOSTIC / SCREENING Screen for colon cancer 10/10/2023 10:45 AM EDT [facility] Start: 10-10-2023 Subsequent hospital visit by physician 10/10/2023 10:45 AM EDT Hospital Encounter [facility] [address] [place] [address] Tanika Dunn MD [address] [facility] [place] [phone] [facility] Start: 10-02-2023 End: 10-02-2023 ambulatory 10/02/2023 2:50 PM EDT Support Visit [facility] Admit [address] [place] [address] [facility] - Pre Admit Start: 02-21-2023 COVID-19 Vaccine ( season) COVID-19 Vaccine () [facility] Start: 02-21-2023 Influenza vaccination Influenza Vacc ine [facility] Start: 1982 Screening for malign ant neoplasm of cervix Pap Smear [facility] Start: 1980 DTaP,Tdap and Td Vaccines ( - Tdap) DTaP,Tdap and Td Vaccines ( - Tdap) [facility] Start: 09-30-1979 Adult BMI Follow Up Plan Adult BMI Follow Up Plan [facility] Start: 1973 Depression Screening Depression Scre ening [facility] Start: 1973 Tobacco Screening Tobacco Screening [facility] Start: 1961 Screening for malign ant neoplasm of colon [facility] End: 09-16-2024 Colonoscopy Colonoscopy GI Routine Encounter for screening colonoscopy 1 Occur[facility]17[facility]2023 [facility] Comment on above: 1 Occurrences starti ng 09/17/2023 until 09/16/2024 THIN PREP TIS PAP AN D HR HPV DNA THIN PREP TIS PAP AND HR HPV DNA Pathology and Cytology Routine Well woman exam with routine gynecological exam Ordered: 02/25/2024 [facility] [employer] Work Phone: Comment on above: Ordered: 02/25/2024 Immunizations Immunization Date Immunization Notes Care Provider Gisele sharp 05-07-2022 influenza, injectabl e, quadrivalent, preservative free Richie Nakita DO Work Phone: [facility] 05-07-2022 influenza virus vacc ine, unspecified formulation Janet Cr CONCRETE POINTER-LANGUAGE TEACHER Work Phone: [facility] 04-25-2021 influenza, injectabl e, quadrivalent, preservative free Richie Nakita DO Work Phone: [facility] 04-28-2020 influenza, injectabl e, quadrivalent, preservative free Richie Nakita DO Work Phone: [facility] 04-15-2019 influenza, injectabl e, quadrivalent, preservative free Richie Nakita DO Work Phone: [facility] 11-04-2018 zoster vaccine recombinant Richie Nakita DO Work Phone: [facility] 08-07-2018 zoster vaccine recombinant Richie Nakita DO Work Phone: [facility] 03-10-2018 seasonal influenza, intradermal, preservative free Richie Nakita DO Work Phone: [facility] 07-26-2013 pneumococcal polysaccharide vaccine, 23 valent Richie Nakita DO Work Phone: [facility] Payers Date Payer Category Payer Unknown [id number] 2022 Private Health Insurance [id number] 2022 Unknown [id number]. [id number] 2022 Unknown [id number] 1960 Unknown [id number] 2.16.84 [id number] 1960 Unknown [id number] 2.16.84 0.1.791265.3.579.2.1259 1960 Unknown [id number] 2.16.84 0.1.474046.3.579.2.1258 1960 Unknown [id number] 2.16.84 0.1.136920.3.579.2.9 1960 Unknown [id number] 2.16.84 0.1.413965.3.579.2.1258 1960 Unknown [id number] 2.16.84 0.1.129254.3.579.2.1258 1960 Unknown [id number] 2.16.84 0.1.058262.3.579.2.1258 1960 Unknown [id number] 2.16.84 0.1.596840.3.579.2.9 1960 Unknown [id number] 2.16.84 0.1.145861.3.579.2.1258 1960 Unknown [id number] 2.16.84 0.1.744621.3.579.2.1258 1960 Unknown [id number] 2.16.84 0.1.249307.3.579.2.9 1960 Unknown [id number] 2.16.84 0.1.044752.3.579.2.9 1960 Unknown [id number] 2.16.84 [id number] Social History Date Type Detail Facility Start: 09-17-2023 End: 04-20-2024 Tobacco smoking status NHIS Ex-smoker [facility] End: 05-05-2012 History of tobacco use Current smoker [facility] End: 05-05-2012 History of tobacco use Cigarette Smoker [facility] Start: 09-17-2023 End: 04-20-2024 Tobacco use and exposure Smokeless tobacco non-user [facility] Start: 09-17-2023 End: 06-30-2024 Alcohol intake Current drinker of alcohol (finding) [facility] Start: 09-17-2023 End: 06-30-2024 History of Social function [facility] Start: 09-17-2023 End: 06-30-2024 Tobacco use panel [facility] Childcare Unknown [facility] Start: 09-17-2023 Alcohol Comment social [facility] Start: 1960 Sex Assigned At Not on file P [facility] Start: 03-26-2023 Alcohol Comment 1-2 drinks 2-3 x a week in the past year [facility] Clinical Notes 09-17-2023 to 06-30-2024 Juan Tiwari, CHRISTOPHE - 06/30/2024 10:30 AM Sandra Ann, CHRISTOPHE - 06/04/2024 11:00 AM Honey Tiwari, CHRISTOPHE - 04/20/2024 10:30 AM Francesca Ann, CHRISTOPHE - 02/26/2024 1:30 PM EDT Note Date & Type Note Facility 06-30-2024 History of Present illness Narrative Images from the original note were not included. Subjective Patient ID: Raquel Duarte is a 63 y.o. female who presents for sore throat, chills and fever. Raquel presents today for a sore throat, fever, chills and a headache for the last 3 days. Has been around sick grandkids. Sinusitis This is a new problem. The current episode started in the past 7 days. The problem has been gradually worsening (worse at night) since onset. Maximum temperature: had chills. Her pain is at a severity of 7/10. The pain is moderate. Associated symptoms include chills, congestion, coughing, headaches, a hoarse voice, sinus pressure, sneezing and a sore throat. Treatments tried: sudafed. The treatment provided mild relief. Current Outpatient Medications on File Prior to Visit Medication Sig Dispense Refill galcanezumab (Emgality) 120 MG/ML auto-injector Inject 1 Syringe (120 mg) under the skin every 30 (thirty) days 3 each 3 OnabotulinumtoxinA (BOTOX IM) Inject into the shoulder, thigh, or buttocks SUMAtriptan (Imitrex) 100 MG tablet TAKE 1 TABLET BY MOUTH ONE TIME NEEDED AT ONSET OF HEADACHE; ( MAX TWO TIMES PER DAY AND NO MORE THAN THREE DAYS IN A WEEK) 9 tablet 11 No current facility-administered medications on file prior to visit. I have reviewed and reconciled the history and medication list with the patient today. No Known Allergies Social History Tobacco Use Smoking status: Former Current packs/day: 0.00 Average packs/day: 0.5 packs/day for 15.0 years (7.5 ttl pk-yrs) Types: Cigarettes Quit date: 05/05/2012 Years since quittin.1 Smokeless tobacco: Never Vaping Use Vaping status: Never Used Substance Use Topics Alcohol use: Yes Alcohol/week: 6.0 standard drinks of alcohol Types: 6 Standard drinks or equivalent per week Comment: 1-2 drinks 2-3x a week in the past year Drug use: Never Family History Problem Relation Name Age of Onset Multiple myeloma Father Curtis Sommer Migraines Father Curtis Sommer Cervical cancer Sibling Migraines Sister Tiana Nelson Psoriasis Neg Hx Past Medical History: Diagnosis Date Migraine (CMS/HCC) Postmenopausal Postmenopausal osteoporosis (CMS/HCC) Vaginal discharge Past Surgical History: Procedure Laterality Date COLONOSCOPY 08/2013 COLONOSCOPY 01/2017 HYSTERECTOMY 03/2012 still has her ovaries Visit Vitals OB Status Hysterectomy Smoking Status Former Review of Systems Constitutional: Positive for chills. HENT: Positive for congestion, hoarse voice, sinus pressure, sneezing and sore throat. Respiratory: Positive for cough. Neurological: Positive for headaches. Objective Physical Exam Vitals reviewed. Constitutional: Appearance: Normal appearance. HENT: Head: Normocephalic. Right Ear: A middle ear effusion is present. Left Ear: A middle ear effusion is present. Nose: Right Sinus: Maxillary sinus tenderness present. Left Sinus: Maxillary sinus tenderness present. Mouth/Throat: Mouth: Mucous membranes are moist. Pharynx: Posterior oropharyngeal erythema and postnasal drip present. Eyes: Conjunctiva/sclera: Conjunctivae normal. Cardiovascular: Rate and Rhythm: Normal rate and regular rhythm. Pulmonary: Effort: Pulmonary effort is normal. Breath sounds: Normal breath sounds. Neurological: General: No focal deficit present. Mental Status: She is alert and oriented to person, place, and time. Psychiatric: Mood and Affect: Mood normal. Behavior: Behavior normal. Thought Content: Thought content normal. Assessment/Plan Diagnoses and all orders for this visit: Acute non-recurrent pansinusitis - azithromycin (Zithromax) 250 MG tablet; Take 2 tablets (500 mg) by mouth Daily for 1 day, THEN 1 tablet (250 mg) Daily for 4 days. - methylPREDNISolone (Medrol Dospak) 4 MG tablets; Follow schedule on package instructions Start the above as directed. Reviewed potential s/e with patient. Encouraged probiotic while on antibiotic. Increase water intake, get plenty of rest. Can take OTC allergy medication for symptomatic relief. Tylenol/Motrin prn. Follow up if no improvement in one week. No follow-ups on file. documented in this encounter [facility] 06-04-2024 History of Present illness Narrative Images from the original note were not included. CHIEF COMPLAINT REASON FOR VISIT : migraine botox HPI: Raquel Duarte is a 63 y.o. female who presents for third botox injections for chronic migraine. After her first botox treatment she had three weeks of pain relief. Her headaches/migraines were less. Medications tried: qulipta, ubrelvy, nurtec, ajovy, imitrex, tizanidine, naproxen, aimovig, zonegran, tylenol, ibuprofen, emgality, excedrin. Her headaches and migraines are back to daily. CURRENT MEDICATIONS: ALLERGIES/DISCONTINUE MEDICATIONS Current Outpatient Medications Medication Instructions galcanezumab (EMGALITY) 120 mg, Subcutaneous, Every 30 days OnabotulinumtoxinA (BOTOX IM) Inject into the shoulder, thigh, or buttocks SUMAtriptan (Imitrex) 100 MG tablet TAKE 1 TABLET BY MOUTH ONE TIME NEEDED AT ONSET OF HEADACHE; ( MAX TWO TIMES PER DAY AND NO MORE THAN THREE DAYS IN A WEEK) No Known Allergies There are no discontinued medications. PAST MEDICAL HISTORY: SURGICAL/SOCIAL/FAMILY HISTORY DEPRESSION SCREEN: Past Medical History: Diagnosis Date Migraine (CMS/HCC) Postmenopausal Postmenopausal osteoporosis (CMS/HCC) Vaginal discharge Past Surgical History: Procedure Laterality Date COLONOSCOPY 08/2013 COLONOSCOPY 01/2017 HYSTERECTOMY 03/2012 still has her ovaries Social History Tobacco Use Smoking status: Former Current packs/day: 0.00 Average packs/day: 0.5 packs/day for 15.0 years (7.5 ttl pk-yrs) Types: Cigarettes Quit date: 05/05/2012 Years since quittin.1 Smokeless tobacco: Never Vaping Use Vaping status: Never Used Substance Use Topics Alcohol use: Yes Alcohol/week: 6.0 standard drinks of alcohol Types: 6 Standard drinks or equivalent per week Comment: 1-2 drinks 2-3x a week in the past year Drug use: Never Family History Problem Relation Name Age of Onset Multiple myeloma Father Curtis Sommer Migraines Father Curtis Sommer Cervical cancer Sibling Migraines Sister Tiana Nelson Psoriasis Neg Hx Depression: Not on file REVIEW OF SYMPTOMS: Review of Systems Constitutional: Negative for chills, fatigue and fever. HENT: Negative for tinnitus. Eyes: Negative for photophobia. Respiratory: Negative for shortness of breath. Cardiovascular: Negative for chest pain. Gastrointestinal: Negative for nausea and vomiting. Genitourinary: Negative for frequency. Musculoskeletal: Negative for back pain, gait problem and neck pain. Neurological: Positive for headaches. Negative for dizziness, tremors, weakness, light-headedness and numbness. Psychiatric/Behavioral: Positive for dysphoric mood. OBJECTIVE: 04/20/2024 10:25 AM 02/26/2024 1:45 PM 02/25/2024 1:51 PM Vitals BMI 30.47 kg/m2 30.08 kg/m2 30.27 kg/m2 BSA (m2) 1.73 m2 1.72 m2 1.73 m2 Systolic 126 148 132 Diastolic 72 88 84 Heart Rate 89 SpO2 98 % Temp 97.5 F Height (in) 5' 5' 5' Weight (lb) 156 154 155 Visit Report Report Report EXAM: Neurological Exam Mental Status Awake, alert and oriented to person, place and time. Oriented to person, place and time. Speech is normal. Language is fluent with no aphasia. Motor Increased muscle tone. Increased cervical/neck paraspinal muscles. PROCEDURE: Procedure - Therapeutic injection, Botulinum Toxin, Chronic Migraine Indication Chronic Migraine Identification The patient was positively identified by name and date of . Consent The procedure was explained to the patient. This included indications; possible complications, including at least bleeding, infection, and ; and ill effects from not undergoing the procedure, including at least inadequate treatment and all possible complications therefrom. Informed consent for the procedure was obtained and witnessed. Any further questions were answered during this visit. Site Prep The areas to be injected were sterilized with 70% isopropanol. Buy/bill Lot # [id number] Dilution 200 units diluted into 4mL = 5 units per 0.1mL Procedure [id number] Ornament Stapler, P3gfwvr Ornament Stapler, D5adbuh Frontalis, P78rqwhj(2 sites) Frontalis, X43hpcte(2 sites) Temporalis, L 20 units (4 sites) Temporalis, R.20units(4 sites) Occipitalis, Q74lwbez(3 sites) Occipitalis, L13sejui(3 sites) Paraspinalis cervicis, K72gmlnp(2 sites) Paraspinalis cervicis, W24uzblv(2 sites) Trapezius, A93owxcf(3 sites) Trapezius, U80lzqxm(3 sites) [id number](9 sites, see below) TOTAL UNITS [id number] The remaining 45 units were injected into various other facial or cervical muscles whose spasmed state was likely to trigger migraines, as determined by clinical examination during the procedure. Disposition The patient tolerated the procedure well. Post-op care was discussed. The patient is aware that duration of action is 3 months, and that delay in reinjection often results in recurrence of migraines Patient Instructions The patient was instructed to return should any bleeding or fluid be seen from the puncture site; for fever; numbness; weakness; or any other unexpected symptoms. Also instructed to follow up in 2-2.5 months to assess effectiveness and need for further treatment. Assessment Chronic migraine without aura, intractable, without status migrainosus - G43.719 Procedure Codes 28128 Chemodenervation of neck muscles, bialteral: Modifiers: 50 22408 Destroy Nerve, Face Muscle, Modifiers: 50 , 51 J0585 Botulinum toxin a per unit, Units: 200.00 Follow Up 2.5 months appointment; 3 months BTX ASSESSMENT AND PLAN: Diagnoses and all orders for this visit: Intractable chronic migraine without aura and without status migrainosus (CMS/HCC) - MR brain wo contrast; Future - MR angiogram head wo IV contrast; Future Family history of brain aneurysm - MR brain wo contrast; Future - MR angiogram head wo IV contrast; Future 63 year old female here for repeat botox injections for chronic migraine. She is having worsening migraines again and wearing off of the treatment is one part. She had three weeks reduction after her first treatment but she needs longer course up to 2-3 treatment rounds of Botox to see its max benefit. That being said due to severity and chronicity of her migraines she likely needs combination treatment. She is having 18 migraine days a month and botox can reduce by 50%. This will still leave her with greater than 4 migraine days a month. She needs combination treatment. She has failed multiple gepants, seizure drug, muscle relaxer, NSAIDs, triptans. I did start Emgality injections monthly for migraine prevention. She has tried qulipta, nurtec, ajovy, aimovig, zonegran for preventative treatments. If we do not treat migraines appropriately they will worsen. Due to positive family history of first degree relative with ruptured aneurysm I believe it is best to order brain MRI/MRA to evaluate in the setting of intractable daily headache. This was discussed with patient, all questions answered. Total time 20 minutes spent reviewing records, performing medically appropriate exam, counseling , education, ordering medication, tests, and/or procedures, documenting health information into the health record, communicating results to the patient, and coordinating care. documented in this encounter [facility] 04-20-2024 History of Present illness Narrative Images from the original note were not included. Subjective Patient ID: Raquel Duarte is a 63 y.o. female who presents for URI. Upper Respiratory Infection Patient complains of symptoms of a URI. Symptoms include post nasal drip, sinus pressure, and sore throat. Onset of symptoms was 4 days ago, and has been unchanged since that time. Treatment to date: antihistamines, cough suppressants, and decongestants. URI This is a new problem. The current episode started in the past 7 days. The problem has been waxing and waning. Maximum temperature: had chills. Associated symptoms include coughing, ear pain, headaches, a plugged ear sensation, sinus pain and a sore throat. She has tried acetaminophen and increased fluids (GARGLED WITH BAKING SODA, COUGH DROPS) for the symptoms. The treatment provided no relief. Current Outpatient Medications on File Prior to Visit Medication Sig Dispense Refill galcanezumab (Emgality) 120 MG/ML auto-injector Inject 1 Syringe (120 mg) under the skin every 30 (thirty) days 3 each 3 OnabotulinumtoxinA (BOTOX IM) Inject into the shoulder, thigh, or buttocks SUMAtriptan (Imitrex) 100 MG tablet TAKE 1 TABLET BY MOUTH ONE TIME NEEDED AT ONSET OF HEADACHE; ( MAX TWO TIMES PER DAY AND NO MORE THAN THREE DAYS IN A WEEK) 9 tablet 11 No current facility-administered medications on file prior to visit. I have reviewed and reconciled the history and medication list with the patient today. No Known Allergies Social History Tobacco Use Smoking status: Former Current packs/day: 0.00 Average packs/day: 0.5 packs/day for 15.0 years (7.5 ttl pk-yrs) Types: Cigarettes Quit date: 05/05/2012 Years since quittin.9 Smokeless tobacco: Never Vaping Use Vaping status: Never Used Substance Use Topics Alcohol use: Yes Alcohol/week: 6.0 standard drinks of alcohol Types: 6 Standard drinks or equivalent per week Comment: 1-2 drinks 2-3x a week in the past year Drug use: Never Family History Problem Relation Name Age of Onset Multiple myeloma Father Curtis Sommer Migraines Father Curtis Sommer Cervical cancer Sibling Migraines Sister Tiana Nelson Psoriasis Neg Hx Past Medical History: Diagnosis Date Migraine (CMS/HCC) Postmenopausal Postmenopausal osteoporosis (CMS/HCC) Vaginal discharge Past Surgical History: Procedure Laterality Date COLONOSCOPY 08/2013 COLONOSCOPY 01/2017 HYSTERECTOMY 03/2012 still has her ovaries Visit Vitals Ht 5' BMI 30.08 kg/m OB Status Hysterectomy Smoking Status Former BSA 1.72 m Review of Systems HENT: Positive for ear pain, sinus pain and sore throat. Respiratory: Positive for cough. Neurological: Positive for headaches. Objective Physical Exam Vitals reviewed. Constitutional: Appearance: Normal appearance. HENT: Head: Normocephalic. Right Ear: A middle ear effusion is present. Left Ear: A middle ear effusion is present. Nose: Congestion present. Right Turbinates: Swollen. Left Turbinates: Swollen. Mouth/Throat: Mouth: Mucous membranes are moist. Pharynx: Oropharynx is clear. Posterior oropharyngeal erythema present. Eyes: Conjunctiva/sclera: Conjunctivae normal. Cardiovascular: Rate and Rhythm: Normal rate and regular rhythm. Heart sounds: Normal heart sounds. Pulmonary: Effort: Pulmonary effort is normal. Breath sounds: Normal breath sounds. Lymphadenopathy: Cervical: Cervical adenopathy present. Skin: General: Skin is warm and dry. Neurological: General: No focal deficit present. Mental Status: She is alert and oriented to person, place, and time. Psychiatric: Mood and Affect: Mood normal. Behavior: Behavior normal. Assessment/Plan Diagnoses and all orders for this visit: Acute non-recurrent pansinusitis - amoxicillin-clavulanate (Augmentin) 875-125 MG tablet; Take 1 tablet (875 mg) by mouth in the morning and 1 tablet (875 mg) before bedtime. Do all this for 10 days. - methylPREDNISolone (Medrol Dospak) 4 MG tablets; Follow schedule on package instructions Start the above as directed. Reviewed potential s/e with patient. Encouraged probiotic while on antibiotic. Increase water intake, get plenty of rest. Can take OTC allergy medication for symptomatic relief. Tylenol/Motrin prn. Follow up if no improvement in one week. Do not take steroids with ibuprofen or naproxen as this increases your risk of bleed. Take steroids with food to prevent irritation in the stomach. No follow-ups on file. documented in this encounter [facility] 02-26-2024 History of Present illness Narrative Images from the original note were not included. CHIEF COMPLAINT REASON FOR VISIT : Botox HPI: Raquel Duarte is a 63 y.o. female who presents for migraine Botox. She reports she had reduction for three weeks post last botox treatment. Her headaches/migraines were less. They were less severe but the last few weeks due to heat and weather they have been increasing. Imitrex does work but she only can take 9 pills a month. She does feel taking the Ibuprofen with Imitrex helps some. Prior to botox migraines were every other day to almost daily. Medications tried: qulipta, ubrelvy, nurtec, ajovy, imitrex, tizanidine, naproxen, aimovig, zonegran, tylenol, ibuprofen, excedrin. CURRENT MEDICATIONS: ALLERGIES/DISCONTINUE MEDICATIONS Current Outpatient Medications Medication Instructions galcanezumab (EMGALITY) 120 mg, Subcutaneous, Every 30 days OnabotulinumtoxinA (BOTOX IM) Intramuscular SUMAtriptan (Imitrex) 100 MG tablet TAKE 1 TABLET BY MOUTH ONE TIME NEEDED AT ONSET OF HEADACHE; ( MAX TWO TIMES PER DAY AND NO MORE THAN THREE DAYS IN A WEEK) No Known Allergies There are no discontinued medications. PAST MEDICAL HISTORY: SURGICAL/SOCIAL/FAMILY HISTORY DEPRESSION SCREEN: Past Medical History: Diagnosis Date Migraine (CMS/HCC) Postmenopausal Postmenopausal osteoporosis (CMS/HCC) Vaginal discharge Past Surgical History: Procedure Laterality Date COLONOSCOPY 08/2013 COLONOSCOPY 01/2017 HYSTERECTOMY 03/2012 still has her ovaries Social History Tobacco Use Smoking status: Former Current packs/day: 0.00 Average packs/day: 0.5 packs/day for 15.0 years (7.5 ttl pk-yrs) Types: Cigarettes Quit date: 05/05/2012 Years since quittin.8 Smokeless tobacco: Never Vaping Use Vaping status: Never Used Substance Use Topics Alcohol use: Yes Alcohol/week: 6.0 standard drinks of alcohol Types: 6 Standard drinks or equivalent per week Comment: 1-2 drinks 2-3x a week in the past year Drug use: Never Family History Problem Relation Name Age of Onset Multiple myeloma Father Curtis Sommer Migraines Father Curtis Sommer Cervical cancer Sibling Migraines Sister Tiana Nelson Psoriasis Neg Hx Depression: Not on file REVIEW OF SYMPTOMS: Review of Systems Constitutional: Negative for chills, fatigue and fever. HENT: Negative for tinnitus. Eyes: Negative for photophobia. Respiratory: Negative for shortness of breath. Cardiovascular: Negative for chest pain. Gastrointestinal: Negative for nausea and vomiting. Genitourinary: Negative for frequency. Musculoskeletal: Negative for back pain, gait problem and neck pain. Neurological: Positive for headaches. Negative for dizziness, tremors, weakness, light-headedness and numbness. Psychiatric/Behavioral: Negative. OBJECTIVE: 02/26/2024 1:45 PM 02/25/2024 1:51 PM 11/12/2023 1:50 PM Vitals BMI 30.08 kg/m2 30.27 kg/m2 29.49 kg/m2 BSA (m2) 1.72 m2 1.73 m2 1.7 m2 Systolic 148 132 130 Diastolic 88 84 84 Height (in) 5' 5' 5' Weight (lb) 154 155 151 Visit Report Report EXAM: Neurological Exam Mental Status Awake, alert and oriented to person, place and time. Oriented to person, place and time. Speech is normal. Language is fluent with no aphasia. Motor Increased muscle tone. Increased Cervical/neck paraspinal muscles. Gait Casual gait is normal including stance, stride, and arm swing. PROCEDURE: Procedure - Therapeutic injection, Botulinum Toxin, Chronic Migraine Indication Chronic Migraine Identification The patient was positively identified by name and date of . Consent The procedure was explained to the patient. This included indications; possible complications, including at least bleeding, infection, and ; and ill effects from not undergoing the procedure, including at least inadequate treatment and all possible complications therefrom. Informed consent for the procedure was obtained and witnessed. Any further questions were answered during this visit. Site Prep The areas to be injected were sterilized with 70% isopropanol. Buy/bill Lot # [id number] Dilution 200 units diluted into 4mL = 5 units per 0.1mL Procedure Procerus 5 units Ornament Stapler, L 5 units Ornament Stapler, R 5 units Frontalis, L 10 units (2 sites) Frontalis, R 10 units (2 sites) Temporalis, L 20 units (4 sites) Temporalis, R .20 units (4 sites) Occipitalis, L 15 units (3 sites) Occipitalis, R 15 units (3 sites) Paraspinalis cervicis, L 10 units (2 sites) Paraspinalis cervicis, R 10 units (2 sites) Trapezius, L 15 units (3 sites) Trapezius, L 15 units (3 sites) Other 45 units (9 sites, see below) TOTAL UNITS INJECTED 200 WASTED 0 The remaining 45 units were injected into various other facial or cervical muscles whose spasmed state was likely to trigger migraines, as determined by clinical examination during the procedure. Disposition The patient tolerated the procedure well. Post-op care was discussed. The patient is aware that duration of action is 3 months, and that delay in reinjection often results in recurrence of migraines Patient Instructions The patient was instructed to return should any bleeding or fluid be seen from the puncture site; for fever; numbness; weakness; or any other unexpected symptoms. Also instructed to follow up in 2-2.5 months to assess effectiveness and need for further treatment. Assessment Chronic migraine without aura, intractable, without status migrainosus - G43.719 Procedure Codes 11859 Chemodenervation of neck muscles, bialteral: Modifiers: 50 47942 Destroy Nerve, Face Muscle, Modifiers: 50 , 51 J0585 Botulinum toxin a per unit, Units: 200.00 Follow Up 2.5 months appointment; 3 months BTX ASSESSMENT AND PLAN: Diagnoses and all orders for this visit: Intractable chronic migraine without aura and without status migrainosus ([facility]) - Ambulatory Referral for Botox - galcanezumab (Emgality) 120 MG/ML auto-injector; Inject 1 Syringe (120 mg) under the skin every 30 (thirty) days 63 year old female here for repeat botox injections for chronic migraine. She is having worsening migraines again and wearing off of the treatment is one part. She had three weeks reduction after her first treatment but she needs longer course up to 2-3 treatment rounds of Botox to see its max benefit. That being said due to severity and chronicity of her migraines she likely needs combination treatment. She is having 18 migraine days a month and botox can reduce by 50%. This will still leave her with greater than 4 migraine days a month. She needs combination treatment. She has failed multiple gepants, seizure drug, muscle relaxer, NSAIDs, triptans. I will start Emgality injections monthly for migraine prevention. She has tried qulipta, nurtec, ajovy, aimovig, zonegran for preventative treatments. If we do not treat migraines appropriately they will worsen. This was discussed with patient, all questions answered. Total time 20 minutes spent reviewing records, performing medically appropriate exam, counseling , education, ordering medication, tests, and/or procedures, documenting health information into the health record, communicating results to the patient, and coordinating care. documented in this encounter [facility] 02-25-2024 History of Present illness Narrative Reason for Appointment: Patient ID: Raquel Duarte is a 63 y.o. female who presents for Well Women Visit Patient presents today for Annual Exam. MEDICATIONS Current Outpatient Medications Medication Instructions OnabotulinumtoxinA (BOTOX IM) Intramuscular SUMAtriptan (Imitrex) 100 MG tablet TAKE 1 TABLET BY MOUTH ONE TIME NEEDED AT ONSET OF HEADACHE; ( MAX TWO TIMES PER DAY AND NO MORE THAN THREE DAYS IN A WEEK) ALLERGIES No Known Allergies PROBLEMS Active Ambulatory Problems Diagnosis Date Noted Insomnia 01/09/2023 Migraine with aura and without status migrainosus, not intractable ([facility]) 01/09/2023 Osteoporosis without current pathological fracture ([facility]) 01/09/2023 Psoriasis vulgaris ([facility]) 01/09/2023 Intractable chronic migraine without aura and without status migrainosus ([facility]) 2023 Resolved Ambulatory Problems Diagnosis Date Noted No Resolved Ambulatory Problems Past Medical History: Diagnosis Date Migraine ([facility]) Postmenopausal Postmenopausal osteoporosis ([facility]) Vaginal discharge HISTORY PAST MEDICAL HISTORY SOCIAL HISTORY Past Medical History: Diagnosis Date Migraine ([facility]) Postmenopausal Postmenopausal osteoporosis ([facility]) Vaginal discharge Social History Tobacco Use Smoking status: Former Current packs/day: 0.00 Average packs/day: 0.5 packs/day for 15.0 years (7.5 ttl pk-yrs) Types: Cigarettes Quit date: 05/05/2012 Years since quittin.8 Smokeless tobacco: Never Vaping Use Vaping status: Never Used Substance Use Topics Alcohol use: Yes Alcohol/week: 6.0 standard drinks of alcohol Types: 6 Standard drinks or equivalent per week Comment: 1-2 drinks 2-3x a week in the past year Drug use: Never FAMILY HISTORY Family History Problem Relation Name Age of Onset Multiple myeloma Father Curtis Sommer Migraines Father Curtis Sommer Cervical cancer Sibling Migraines Sister Tiana Nelson Psoriasis Neg Hx SURGICAL HISTORY Past Surgical History: Procedure Laterality Date COLONOSCOPY 08/2013 COLONOSCOPY 01/2017 HYSTERECTOMY 03/2012 still has her ovaries REVIEW OF SYSTEMS Review of Systems: Review of Systems Constitutional: Negative. HENT: Negative. Eyes: Negative. Respiratory: Negative. Cardiovascular: Negative. Gastrointestinal: Negative. Genitourinary: Negative. Musculoskeletal: Negative. Skin: Negative. Neurological: Negative. All other systems reviewed and are negative. Hematological: Negative. Endocrine: Negative. Allergic/Immunologic: Negative. OBJECTIVE Objective: Physical Exam Constitutional: Appearance: Normal appearance. She is well-developed. Genitourinary: Vulva normal. Vaginal cuff intact. Cervix is not absent. Uterus is not absent. Cardiovascular: Rate and Rhythm: Normal rate and regular rhythm. Abdominal: General: Bowel sounds are normal. There is no distension. Palpations: Abdomen is soft. Tenderness: There is no abdominal tenderness. There is no guarding or rebound. Musculoskeletal: General: No swelling. Normal range of motion. Right lower leg: No edema. Left lower leg: No edema. Neurological: Mental Status: She is alert and oriented to person, place, and time. Skin: General: Skin is warm and dry. Psychiatric: Mood and Affect: Mood normal. Behavior: Behavior normal. Vitals and nursing note reviewed. Exam conducted with a cotton wringer present. Vitals: Estimated body mass index is 30.27 kg/m as calculated from the following: Height as of this encounter: 5'. Weight as of this encounter: 155 lb. BP: 132/84 No LMP recorded. Patient has had a hysterectomy. ASSESSMENT & PLAN ICD-10-CM 1. Well woman exam with routine gynecological exam Z01.419 THIN PREP TIS PAP AND HR HPV DNA Annual: Patient presents today for an annual exam. Patient states she is doing well and has no complaints. Pap was obtained without difficulty and patient given mammogram order to have scheduled/obtained. No orders of the defined types were placed in this encounter. Follow Up: Patient is to return in one year for annual unless needed otherwise. Documented by Carina Hanley LPN on behalf of: Richie Mace DO documented in this encounter [facility] 09-17-2023 History of Present illness Narrative Chief Complaint: Colon cancer screening [...] patient/family/caregiver Referring and communicating with other health child care lead teacher Encounter for screening colonoscopy [Z12.11] GERARDO KEE [facility] General [facility] [place] This note was created with the assistance of a speech recognition program. While intending to generate a timely document that accurately reflects the content of the visit, no guarantee can be provided that every grammatical or spelling mistake has been or will be identified or corrected. Thank you for your understanding. GERARDO Kee 09/17/23 1452 documented in this encounter [facility] Evaluation note Diagnosis Encounter for screening colonoscopy- Primary Screen for colon cancer Special screening for malignant neoplasms, colon [facility] Diagnosis Acute non-recurrent pansinusitis- Primary documented in this encounter [facility]* Diagnosis Acute non-recurrent pansinusitis- Primary documented [facility] encounter [facility]* Diagnosis Intractable chronic migraine without aura and without status migrainosus (CMS/HCC)- Primary Family history of brain aneurysm Family history of other cardiovascular diseases documented [facility] encounter [facility]* Diagnosis Well woman exam with routine gynecological exam Routine gynecological examination documented in this encounter [facility]* Diagnosis Intractable chronic migraine without aura and without status migrainosus (CMS/HCC) documented [facility] encounter [facility]* Diagnosis Acute non-recurrent pansinusitis- Primary documented in this encounter [facility] HealthcareInstructionsNot on filedocumented in [facility] Family History No Family History Records FoundNo Family History Records Found Advance Directives No Advanced Directives Records FoundNo Advanced Directives Records Found Additional Source Comments INFORMATION SOURCE (unrecogn ized section and content) DATE CREATED AUTHOR 08/20/2022 [facility] DATE CREATED AUTHOR AUTHOR'S ORGANIZ ATION 07/06/2024 [facility] EPIC Reason for Visit (unrecogniz ed section and content) Reason Comments Colon Cancer Screening 10 YEAR RECALL Specialty Diagnoses / Procedures Referred By Contac t Referred To Contact General Surgery Diagnoses Encounter for screening for malignant neoplasm of colon Procedures MA OFFICE OUTPATIENT VISIT 60-74 MINS HIGH MDM AMB REFERRAL TO GENERAL SURGERY Flavio Peacock MD [address] [facility] [address] [place] [address] Mook Joshi DO [address] [place] [id number] Referral ID Status Reason Start Date Expiration Date Visits Re quested Visits Authorized [id number] Closed 08/25/2023 02/21/2024 1 1 Reason Comments URI Reason Comments Well Women Visit Specialty Diagnoses / Procedures Referred By Contac t Referred To Contact Neurology Diagnoses Intractable chronic migraine without aura and without status migrainosus (CMS/HCC) Su Ann NP [id number] Margie Rossi [address] [place] [id number] Su Ann NP 53Yonathan Rossi [address] [place] [address] Referral ID Status Reason Start Date Expiration Date V isits Requested Visits Authorized [id number] Authorized 2023 06/22/2024 3 3 Care Teams (unrecognized sec tion and content) Pc Technician Relationship Specialty Start Date End Date AydinWalter DO PCP - General Family Medicine 01/24/17 Pc Technician Relationship Specialty Start Date End Date Flavio Peacock MD [address] [place] [address] PCP - General Internal Medicine 11/26/22 Pc Technician Relationship Specialty Start Date End Date Flavio Peacock MD [address] [place] [address] PCP - General Internal Medicine 11/26/22 Pc Technician Relationship Specialty Start Date End Date Flavio Peacock MD [address] [place] [address] PCP - General Internal Medicine 11/26/22 Pc Technician Relationship Specialty Start Date End Date Flavio Peacock MD [address] [place] [address] PCP - General Internal Medicine 11/26/22 Pc Technician Relationship Specialty Start Date End Date Flavio Peacock MD [address] [place] [address] PCP - General Internal Medicine 11/26/22 Pc Technician Relationship Specialty Start Date End Date Flavio Peacock MD [address] [place] [address] PCP - General Internal Medicine 11/26/22 Pc Technician Relationship Specialty Start Date End Date Flavio Peacock MD [address] [place] [address] PCP - General Internal Medicine 11/26/22 Pc Technician Relationship Specialty Start Date End Date Flavio Peacock MD [address] [facility] [address] [place] [address] PCP - General Internal Medicine 11/26/22 Pc Technician Relationship Specialty Start Date End Date Flavio Peacock MD [address] [facility] [address] [place] [address] PCP - General Internal Medicine 11/26/22 FOR RECORDS PERTAINING TO PATIENTS WHO ARE [...] BE BASED ON THE PRIMARY CLINICAL RECORDS. [employer] provides no warranty or guarantee of the accuracy or completeness of information in this document.
--- NOTE | 2024-07-14 09:15 | MR_ITS ---
[address] [address] Patient Name: DINO DUARTE MRN: [facility]:[id number] date: 1960 Sex: F Assigned Patient Location: MRI Current Patient Location: MRI Accession/Order Number: [id number] Exam Date: 07/14/2024 09:00 Report Date: 07/14/2024 11:53 At the request of: TREY ANN Procedure: MR angio head wo con EXAM: MR head/brain wo con, MR angio head wo con CLINICAL INDICATION: Intractable Chronic Migraine Without Aura COMPARISON: MRI brain 08/12/2013. TECHNIQUE/PROTOCOL: 1) Standard without and with contrast brain MRI performed. 2) 3D brain MRA performed. 3D reconstructions were performed to evaluate vascular anatomy. CONTRAST: None. FINDINGS: BRAIN: No restricted diffusion, extra-axial fluid collection, hydrocephalus, midline shift, or other mass effect. Intracranial flow voids are maintained. Multiple scattered small hyperintense T2/FLAIR periventricular and subcortical foci are nonspecific. Normal midline structures. Normal marrow signal. No soft tissue abnormalities. Mild scattered paranasal sinus mucosal thickening. Trace bilateral mastoid effusions. VASCULATURE: Intracranial ICAs: Patent bilaterally from the skull base to the carotid terminus. MCAs: Normal bilaterally. ACAs: Normal bilaterally. P-Comms: Visualized bilaterally. Vertebral arteries: Normal to the confluence with the basilar artery. Left dominant vertebral system. Basilar artery: Normal. wireless watcher: Normal bilaterally. Aneurysm: None. MR/MR angio head wo con IMPRESSION: 1. No acute intracranial process. 2. Normal MRA of the head. No intracranial aneurysm. 3. Multiple scattered small hyperintense T2/FLAIR periventricular and subcortical foci are nonspecific and could reflect chronic microvascular angiopathic changes and/or sequela of migraine headaches. Electronically authenticated by: COLIN PANCHAL Date: 07/14/2024 11:53
== END 2024-07-14 08:41 | disposition home or self-care (01) ==
LOC: MRI 08:40
PROVIDERS: PCP Internal Medicine; Visit Provider Nurse Practitioner Gerontology
DX: G43.719 Chronic migraine without aura, intractable, without status migrainosus (principal); Z82.49 Family history of ischemic heart disease and other diseases of the circulatory system
CPT/HCPCS: 70544; 70551

== ENCOUNTER 2024-11-22 10:21 | Outpatient (OUT) | payer OTHER, SELFPAY ==
--- NOTE | 2024-11-22 10:26 | MM_ITS ---
Patient Name: DINO DUARTE MR#: [id number] : 1960 Exam Date: 11/22/2024 Ordering Doctor: DR RICHIE COELLO . RADIOLOGY REPORT PROCEDURE: MM TOMOSYNTHESIS SCREENING BI COMPARISON: MM TOMOSYNTHESIS SCREENING BI, 10/23/2023. MG MAMM SCREEN 3D ALEKSANDR CAD, 08/15/2022. MG MAMM SCREEN 3D ALEKSANDR CAD, 05/10/2021. MG MAMM SCREEN ALEKSANDR W CAD, 03/24/2020. INDICATIONS: Screening Calculator Name NCI Breast Cancer Risk Assessment Tool 5 Year Breast Cancer Risk 1.00% Lifetime Breast Cancer Risk 4.40% Personal Breast Cancer No Personal Ovarian Cancer No Treatments None Family Cancers Aunt-maternal with brain cancer at age 60. LOCATION: [facility] BREAST COMPOSITION: The breasts are heterogeneously dense,which may obscure small masses. FINDINGS: DIAGNOSTIC CATEGORY 1--NEGATIVE. RIGHT BREAST: No significant suspicious finding. LEFT BREAST: No significant suspicious finding. Benign-appearing lymph nodes are noted along the left chest wall. RECOMMENDATIONS: ROUTINE MAMMOGRAM AND CLINICAL EVALUATION IN 12 MONTHS. PLEASE NOTE: A NORMAL MAMMOGRAM DOES NOT EXCLUDE THE POSSIBILITY OF BREAST CANCER. A CLINICALLY SUSPICIOUS PALPABLE LUMP SHOULD BE BIOPSIED. Dictated by: Curtis Motta MD on 11/22/2024 at 16:09 Approved by: Curtis Motta MD on 11/22/2024 at 16:13
--- OUTSIDE RECORDS SUMMARY | 2024-11-22 10:46 | XMS_ITS | CCD ---
Author Organization [facility] Care Team Providers Care Senior Sql Dba Name Role Phone DR FLAVIO PEACOCK Primary Care Unavailable OJNATHAN, DR HUNTER Consulting Gavi PEACOCK, DR HUNTER Attending Unavailable DR FLAVIO PEACOCK Admitting Unavailable SHAHRAM, DR LUISITO Allison Consulting Flavio Hennessy MD Primary Care Provider FLAVIO PEACOCK Attending Unavailable SU ANN Attending JUAN Mancilla Attending Unavailable SU ANN Attending Unavailab SU Oneill Attending Unavailab le SU ANN Attending Unavailab le SU ANN Referring Unavailab SU Oneill Attending Unavailab JUAN Mcdermott Attending Unavailable RICHIE MACE Attending Unavailable Medications Current Medications Medication Drug [...] Active 1 ml galcanezumab-gnlm 120 mg/ml auto-injector (11 sources) Start: 02-26-2024 End: 02-25-2025 galcanezumab (Emgality) 120 MG/ML auto-injector Indications: Intractable chronic migraine without aura and without status migrainosus (CMS/HCC) Inject 1 Syringe (120 mg) under the skin every 30 (thirty) days 3 each 3 02/26/2024 02/25/2025 Active methylPREDNISolone (5 sources) Corticosteroid Start: 06-30-2024 End: 07-07-2024 methylPREDNISolone (Medrol Dospak) 4 MG tablets Indications: Acute non-recurrent pansinusitis Follow schedule on package instructions 21 tablet 06/30/2024 07/07/2024 Active Start: 04-20-2024 End: 04-27-2024 methylPREDNISolone (Medrol D ospak) 4 MG tablets Indications: Acute non-recurrent pansinusitis Follow schedule on package instructions 21 tablet 04/20/2024 04/27/2024 Active mometasone furoate 0.001 mg/mg topical ointment (2 sources) Corticosteroid Start: 11-04-2024 End: 11-04-2025 mometasone (Elocon) 0.1 % ointment Indications: Psoriasis vulgaris (CMS/HCC) Apply topically Daily 45 g 2 11/04/2024 11/04/2025 Active SUMAtriptan 100 mg oral tablet (18 sources) Serotonin-1b and Serotonin-1d Receptor Agonist Start: [...] A WEEK) 9 tablet 11 02/02/2024 Active topiramate 25 mg oral tablet (3 sources) Start: 09-02-2024 take 1 tablet by mouth at bedtime, then take 2 tablets by mouth at bedtime topiramate (Topamax) 25 MG tablet Indications: Intractable chronic migraine without aura and without status migrainosus (CMS/HCC) Take 1 tablet (25 mg) by mouth at bedtime for 7 days, THEN 2 tablets (50 mg) at bedtime. 67 tablet 2 09/02/2024 Active ubrogepant 100 mg oral tablet (2 sources) Start: 10-28-2024 Ubrelvy 100 MG tablet Take 1 tablet by mouth if needed 10/28/2024 Active Completed/Discontinued Medications Medication Drug Class(es) Dates Sig (Normalized) Sig (Original) onabotulinumtoxina 200 unt injection (20 sources) Acetylcholine Release Inhibitor Start: End: onabotulinumtoxinA [...] injection once 200 Units, Intramuscular, Once, On Fri02/26/24 at 1345, For 1 dose, Charging context [...] status migrainosus] Onset: 01-09-2023 01-09-2023 Chronic Osteoporosis (20 sources) Osteoporosis; Translations: [Age-related osteoporosis without current pathological fracture] Onset: 01-09-2023 01-09-2023 Chronic Other inflammatory condition of skin (20 sources) Psoriasis vulgaris; Translations: [Psoriasis vulgaris] Onset: 01-09-2023 01-09-2023 Chronic Other screening for suspected conditions (not mental disorders or infectious disease) (4 sources) Encounter for screening mammogram for malignant neoplasm of breast; Translations: [ENC SCR MAMMO MALIG NEOPLASM BREAST] Onset: 08-15-2022 Episodic Other upper respiratory infections [...] Documented Da te Episodic/Chronic Residual codes; unclassified (18 sources) Insomnia; Translations: [Insomnia, unspecified] Onset: 01-09-2023 01-09-2023 Episodic Results Test Name Value Interpretation Reference Range Facil ity IGP,APTIMA HPV,AGE GDLNon AGE GDLN ACOG TESTING Note . [facility] Comment on above: TESTS RESULT FLAG UNITS REF RANGE LAB Clinician Provided Cytology Information Source.............Vagina No. of containers..01 ThinPrep Vial Age Algo ACOG Feli... 30-65 01 FLAG LEGEND: L-Low Normal,H-High Normal,LL-Alert Low,HH-Alert High <-Panic Low,>-Panic High,A-Abnormal,AA-Critical Abnormal Performed at: 01 =[address] [place] [address] Pratibha Mccauley MD, HPV APTIMA Negative Negative [facility] Comment on above: This nucleic acid amplification test det ects fourteen high- risk HPV types (16,18,31,33,35,39,45,51,52,56,58,59,66,68) without differentiation. Performed at: =[facility] [id number] Supervisor Prep: Pratibha Mccauley MD, Phone: [phone] Performed at: [address] [id number] Supervisor Prep: Pratibha Mccauley MD, Phone: [phone] IGP, APTIMA HPV, RFX 16/18,45 Note . [facility] Comment on above: TESTS RESULT FLAG UNITS REF RANGE LAB DIAGNOSIS: 02 NEGATIVE FOR INTRAEPITHELIAL LESION OR MALIGNANCY. Specimen adequacy: 02 Satisfactory for evaluation. Performed by: 02 Erica Del Angel, Waste[employer] Treatment Plant Chemist (ASC) . 02 Note: Note 02 The Pap [...] <-Panic Low,>-Panic High,A-Abnormal,AA-Critical Abnormal Performed at: [address] [address] Pratibha Mccauley MD, SPATULA-ALONE VAGINA [facility] MAMM SCREEN 3D ALEKSANDR CADon 08-15-2022 MG MAMM SCREEN 3D ALEKSANDR CAD Patient: RAQUEL DUARTE Exam Date: 08/15/2022 : 1960 Gender:F Ordering : DR FLAVIO PEACOCK M.D. Admission #: [id number] Family : DR RICHIE MACE . Order #: [id number] CLICK HERE TO VIEW EXAM RADIOLOGY REPORT [...] brain cancer at age 61. LOCATION: [facility] BREAST COMPOSITION: Heterogeneously dense,which may obscure [...] M.D. on 08/16/2022 at 09:29 Normal [facility] Vital Signs Date Time Vital Sign Value Performing Clinician Faci emmay 11-04-2024 09:36-0400 Body height 152.4 cm Flavio Peacock MD Work Phone: [facility] 11-04-2024 09:36-0400 Body mass index (BMI) [Ratio] 30.66 kg/m2 Flavio Peacock MD Work Phone: [facility] 11-04-2024 09:36-0400 Body weight 71.22 kg Flavio Peacock MD Work Phone: [facility] 11-04-2024 09:36-0400 Diastolic blood pressure 70 mm[Hg] Flavio Peacock MD Work Phone: [facility] 11-04-2024 09:36-0400 Heart rate 83 /min Flavio Peacock MD Work Phone: [facility] 11-04-2024 09:36-0400 SaO2% (BldA) [Mass fraction] 99 % Flavio Peacock MD Work Phone: [facility] 11-04-2024 09:36-0400 Systolic blood pressure 124 mm[Hg] Flavio Peacock MD Work Phone: [facility] 06-30-2024 10:41-0500 Body height 152.4 cm Juan Tiwari NP Work Phone: [facility] 06-30-2024 10:41-0500 Body mass index (BMI) [Ratio] 30.74 kg/m2 Juan Tiwari NP Work Phone: [facility] 06-30-2024 10:41-0500 Body weight 71.4 kg Juan Karie TANK TENDER Work Phone: [facility] 06-30-2024 10:41-0500 Diastolic blood pressure 84 mm[Hg] Juan Larksville TANK TENDER Work Phone: [facility] 06-30-2024 10:41-0500 Heart rate 81 /min Juan Karie TANK TENDER Work Phone: [facility] 06-30-2024 10:41-0500 Respiratory rate 16 /min Juan [place] TANK TENDER Work Phone: [facility] 06-30-2024 10:41-0500 SaO2% (BldA) [Mass fraction] 97 % Juan [place] TANK TENDER Work Phone: [facility] 06-30-2024 10:41-0500 Systolic blood pressure 122 mm[Hg] Juan [place] TANK TENDER Work Phone: [facility] 06-04-2024 11:00-0500 Body height 152.4 cm Su Graziani TANK TENDER Work Phone: [facility] 06-04-2024 11:00-0500 Body mass index (BMI) [Ratio] 30.86 kg/m2 Su Graziani TANK TENDER Work Phone: [facility] 06-04-2024 11:00-0500 Body weight 71.67 kg Su Graziani TANK TENDER Work Phone: [facility] 06-04-2024 11:00-0500 Diastolic blood pressure 82 mm[Hg] Su Graziani TANK TENDER Work Phone: [facility] 06-04-2024 11:00-0500 Systolic blood pressure 120 mm[Hg] Su Graziani TANK TENDER Work Phone: [facility] 04-20-2024 10:25-0400 Body height 152.4 cm Juan [place] TANK TENDER Work Phone: [facility] 04-20-2024 10:25-0400 Body mass index (BMI) [Ratio] 30.47 kg/m2 Juan Tiwari TANK TENDER Work Phone: [facility] 04-20-2024 10:25-0400 Body temperature 97.5 [degF] Juan Tiwari TANK TENDER Work Phone: [facility] 04-20-2024 10:25-0400 Body weight 70.76 kg Juan Tiwari TANK TENDER Work Phone: [facility] 04-20-2024 10:25-0400 Diastolic blood pressure 72 mm[Hg] Juan Tiwari TANK TENDER Work Phone: [facility] 04-20-2024 10:25-0400 Heart rate 89 /min Juan Tiwari TANK TENDER Work Phone: [facility] 04-20-2024 10:25-0400 SaO2% (BldA) [Mass fraction] 98 % Juan Tiwari TANK TENDER Work Phone: [facility] 04-20-2024 10:25-0400 Systolic blood pressure 126 mm[Hg] Juan Tiwari TANK TENDER Work Phone: [facility] 02-26-2024 13:45-0400 Body height 152.4 cm Su Blacki TANK TENDER Work Phone: [facility] 02-26-2024 13:45-0400 Body mass index (BMI) [Ratio] 30.08 kg/m2 Su Krishnaniani TANK TENDER Work Phone: [facility] 02-26-2024 13:45-0400 Body weight 69.85 kg Su Eulogioiani TANK TENDER Work Phone: [facility] 02-26-2024 13:45-0400 Diastolic blood pressure 88 mm[Hg] Su Eulogioiani TANK TENDER Work Phone: [facility] 02-26-2024 13:45-0400 Systolic blood pressure 148 mm[Hg] Su Eulogioiani TANK TENDER Work Phone: [facility] 02-25-2024 13:51-0400 Body height 152.4 cm Richie Nakita DO Work Phone: [facility] 02-25-2024 13:51-0400 Body mass index (BMI) [Ratio] 30.27 kg/m2 Richie Nakita DO Work Phone: [facility] 02-25-2024 13:51-0400 Body weight 70.31 kg Richie Nakita DO Work Phone: [facility] 02-25-2024 13:51-0400 Diastolic blood pressure 84 mm[Hg] Richie Nakita DO Work Phone: [facility] 02-25-2024 13:51-0400 Systolic blood pressure 132 mm[Hg] Richie Nakita DO Work Phone: [facility] Encounters Encounter Date Encounter Type Care Provider Facility Start: 11-04-2024 End: 11-04-2024 Bamboo flowsheet Flavio Peacock MD Work Phone: [facility] Start: 11-04-2024 End: 11-04-2024 Bamboo flowsheet Flavio Peacock MD Work Phone: [facility] Start: 11-04-2024 End: 11-04-2024 Patient encounter status Flavio Peacock MD Work Phone: [facility] Work Phone: Start: 11-04-2024 End: 11-04-2024 Periodic preventive med est patient 40-64yrs Flavio Peacock MD Work Phone: [facility] Comment on above: Wellness examination (Primary Dx); Psoriasis vulgaris (CMS/HCC); Age-related osteoporosis without current pathological fracture (CMS/HCC); Migraine with aura and without status migrainosus, not intractable (CMS/HCC) Start: 11-04-2024 End: 11-04-2024 ambulatory FLAVIO PEACOCK Not Available Start: 09-02-2024 End: 09-02-2024 Bamboo flowsheet Su Ann NP Work Phone: [facility] Start: 09-02-2024 End: 09-02-2024 Bamboo flowsheet Su Caroline Cleaningadalberto TANK TENDER Work Phone: [facility] Start: 09-02-2024 End: 09-02-2024 ambulatory SU Caroline SETH Not Available Start: 06-30-2024 End: 06-30-2024 Bamboo flowsheet Juan Tiwari TANK TENDER Work Phone: [facility] Start: 06-30-2024 End: 06-30-2024 Bamboo flowsheet Juan Tiwari TANK TENDER Work Phone: [facility] Start: 06-30-2024 End: 06-30-2024 ambulatory JUAN TIWARI Not Available Start: 06-30-2024 End: 06-30-2024 Office outpatient visit 25 minutes Juan Tiwari TANK TENDER Work Phone: [facility] Comment on above: Acute non-recurrent pansinusitis (Primary Dx) Start: 06-04-2024 End: 06-04-2024 Bamboo flowsheet Su Caroline Cleaningadalberto TANK TENDER Work Phone: [facility] Start: 06-04-2024 End: 06-04-2024 Bamboo flowsheet Su Caroline Cleaningadalberto TANK TENDER Work Phone: [facility] Start: 06-04-2024 End: 06-04-2024 Office outpatient visit 15 minutes Su Ann TANK TENDER Work Phone: [facility] Comment on above: Intractable chronic migraine without aura and without status migrainosus (CMS/HCC) (Primary Dx); Family history of brain aneurysm Start: 06-04-2024 End: 06-04-2024 ambulatory SU Caroline SETH Not Available Start: 04-27-2024 End: 04-27-2024 Orders Only Juan Tiwari TANK TENDER Work Phone: [facility] Comment on above: Acute non-recurrent pansinusitis (Primary Dx) Start: 04-20-2024 End: 04-20-2024 Bamboo flowsheet Juan Tiwari TANK TENDER Work Phone: [facility] Start: 04-20-2024 End: 04-20-2024 Bamboo flowsheet Juan Tiwari TANK TENDER Work Phone: [facility] Start: 04-20-2024 End: 04-20-2024 Office outpatient visit 25 minutes Juan Tiwari TANK TENDER Work Phone: [facility] Comment on above: Acute non-recurrent pansinusitis (Primary Dx) Start: 04-20-2024 End: 04-20-2024 ambulatory JUAN TIWARI Not Available Start: 02-26-2024 End: 02-26-2024 Office outpatient visit 15 minutes Su Ann TANK TENDER Work Phone: [facility] Comment on [...] Available Start: 11-12-2023 End: 11-12-2023 ambulatory SU Caroline SETH Not Available Start: 08-15-2022 End: 08-16-[address] FLAVIO PEACOCK Facility:[facility]1 Procedures Date Procedure Procedure Detail Performing Clinician Start: 02-25-2024 IGP,APTIMA HPV,AGE GDLN Richie Nakita DO Work Phone: Start: 10-23-2023 Mammography Richie Fazi o DO Work Phone: Start: 10-10-2023 Colonoscopy Richie Fazi o DO Work Phone: Plan of Treatment Date Care Activity Detail Author Start: 10-09-2033 Screening for malign ant neoplasm of colon [facility] Start: 11-04-2025 End: 11-04-2025 Patient encounter procedure 11/04/2025 9:00 AM EDT Office Visit [facility] [address] [facility] [address] [place] [id number] Flavio Peacock MD [address] [facility] [address] [place] [address] [facility] Start: 03-01-2025 End: 03-01-2025 Patient encounter procedure 03/01/2025 2:00 PM EDT Office Visit [facility] [address] [place] [address] Richie Mace, DO [address] [facility] [address] [place], [place] [id number] [facility] Start: 02-21-2025 Influenza vaccination Influenz a Vaccine (Season Ended) [facility] Start: 11-29-2024 End: 11-29-2024 Patient encounter procedure 11/29/2024 1:00 PM EDT Office Visit [facility] [address] [facility] [address] [place] [address] Chao Evans MD [address] [facility] [address] [place] [address], [place] [address] [facility] Start: 11-04-2024 End: 11-04-2025 Comprehensive metabolic 2000 panel - Serum or Plasma Comprehensive metabolic panel Lab Routine Wellness examination Migraine with aura and without status migrainosus, not intractable (CMS/HCC) Expected: 11/04/2024 (Approximate), Expires: 11/04/2025 [facility] Comment on above: Expected: 11/04/2024 (Approximate), Expires: 11/04/2025 Start: 11-04-2024 End: 11-04-2025 Lipid 1996 panel - Serum or Plasma Lipid panel Lab Routine Wellness examination Migraine with aura and without status migrainosus, not intractable (CMS/HCC) Expected: 11/04/2024 (Approximate), Expires: 11/04/2025 [facility] Comment on above: Expected: 11/04/2024 (Approximate), Expires: 11/04/2025 Start: 11-04-2024 End: 11-04-2025 TSH W/REFLEX TO FT4 TSH W/REFLEX TO FT4 Lab Routine Wellness examination Migraine with aura and without status migrainosus, not intractable (CMS/HCC) Expected: 11/04/2024 (Approximate), Expires: 11/04/2025 [facility] Work Phone: Comment on above: Expected: 11/04/2024 (Approximate), Expires: 11/04/2025 Start: 11-04-2024 End: 11-04-2024 Patient encounter procedure 11/04/2024 9:30 AM EDT Office Visit [facility] [address] [facility] [address] [place] [id number] Flavio Peacock MD [address] [facility] [address] [place] [address] Arrived [facility] Comment on above: Arrived Start: 10-22-2024 Screening for malign ant neoplasm of breast Mammogram [facility] Start: 09-02-2024 End: 09-02-2024 Patient encounter procedure [facility] Comment on above: Arrived Start: 07-21-2024 End: 07-21-2024 Telemedicine consultation with patient 07/21/2024 3:00 PM EST Telemedicine [facility] [address] [phone] Su Ann NP [address] [facility] [address] [place] [address] [facility] [address] Start: 06-04-2024 End: 06-04-2025 MR Brain WO contrast MR brain wo contrast Imaging STAT Intractable chronic migraine without aura and without status migrainosus (CMS/HCC) Family history of brain aneurysm Expected: 06/04/2024, Expires: 06/04/2025 [facility] Work Phone: Comment on above: Expected: 06/04/2024 , Expires: 06/04/2025 Start: 06-04-2024 End: 06-04-2025 MRA Head vessels WO contrast MR angiogram head wo IV contrast Imaging STAT Intractable chronic migraine without aura and without status migrainosus (CMS/HCC) Family history of brain aneurysm Expected: 06/04/2024, Expires: 06/04/2025 [facility] Comment on above: Expected: 06/04/2024 , Expires: 06/04/2025 Start: 06-04-2024 End: 06-04-2024 Patient encounter procedure [facility] Comment on above: Arrived Start: 04-20-2024 End: 04-20-2024 Patient encounter procedure 04/20/2024 10:30 AM EDT Office Visit [facility] [address] [facility] [address] [place] [address] Juan Tiwari NP [address] [facility] [address] [place] [address] Arrived [facility] Comment on above: Arrived Start: 02-26-2024 End: 02-26-2024 Patient encounter procedure 02/26/2024 1:30 PM EDT Procedure Visit [facility] [address] [facility] [address] [place] [address] Su Ann TANK TENDER [address] [place] [address] [facility] Start: 02-25-2024 End: 02-25-2024 Patient encounter procedure 02/25/2024 1:40 PM EDT Office Visit [facility] [address] [facility] [place] [address] Nakita, Richie, DO [address] [facility] [address] [place], [place] [id number] Arrived [facility] Comment on above: Arrived Start: 02-22-2024 Influenza vaccination Influenza Vacc ine (#1) [facility] Start: 1960 Screening for malign ant neoplasm of colon [facility] CBC W Auto Different ial panel - Blood CBC and differential Lab Routine Wellness examination Migraine with aura and without status migrainosus, not intractable ([facility]/HCC) Ordered: 11/04/2024 [facility] Comment on above: Ordered: 11/04/2024 THIN PREP TIS PAP AN D HR HPV DNA THIN PREP TIS PAP AND HR HPV DNA Pathology and Cytology Routine Well woman exam with routine gynecological exam Ordered: 02/25/2024 [facility] Work Phone: Comment on above: Ordered: 02/25/2024 Immunizations Immunization Date Immunization Notes Care Provider [facility] 05-07-2022 influenza, injectabl e, quadrivalent, preservative free Richie Nakita DO Work Phone: [facility] 05-07-2022 influenza virus vacc ine, unspecified formulation Richei Nakita DO Work Phone: [facility] 04-25-2021 influenza, injectabl e, quadrivalent, preservative free Richie Nakita DO Work Phone: [facility] 04-28-2020 influenza, injectabl e, quadrivalent, preservative free Richie Nakita DO Work Phone: [facility] 04-15-2019 influenza, injectabl e, quadrivalent, preservative free Richie Nakita DO Work Phone: [facility] 11-04-2018 zoster vaccine recombinant C santi Verdeo DO Work Phone: [facility] 08-07-2018 zoster vaccine recombinant C santi Verdeo DO Work Phone: [facility] 03-10-2018 seasonal influenza, intradermal, preservative free Richie Verdeo DO Work Phone: [facility] 07-26-2013 pneumococcal polysaccharide vaccine, 23 valent Richie Nakita DO Work Phone: [facility] Payers Date Payer Category Payer Unknown [id number] 2022 Private Health Insurance [id number] 2022 Unknown IAM [employer] [facility] [id number] 2022-[facility] [phone] [facility] [place] [address] [id number] 2022 Unknown [id number] 1960 Unknown [id number]. [id number] 1960 Unknown [id number] [id number]. 2.1258 1960 Unknown [id number] [id number]. 2.1258 1960 Unknown [id number] [id number]. 2.1258 1960 Unknown [id number]. 2.1258 1960 Unknown [id number] [id number]. 2.1259 1960 Unknown [id number] [id number]. 2.1259 1960 Unknown [id number] [id number]. 2.1259 1960 Unknown [id number] [id number]. 2.1259 1960 Unknown [id number] 2.1259 Social History Date Type Detail Facility Start: 12-30-2023 End: 04-20-2024 Tobacco smoking status DEIS Ex-smoker [facility] End: 05-05-2012 History of tobacco use Current smoker [facility] End: 05-05-2012 History of tobacco use Cigarette Smoker [facility] Start: 12-30-2023 End: 11-04-2024 Cigarettes smoked current (pack per day) - Reported 0.5 [facility] Start: 12-30-2023 End: 04-20-2024 Tobacco use and exposure Smokeless tobacco non-user [facility] Start: 02-26-2024 End: 11-04-2024 Alcoholic beverage intake Current drinker of alcohol (finding) [facility] Start: 02-26-2024 End: 11-04-2024 Tobacco use panel [facility] Start: 03-26-2023 Alcohol Comment 1-2 drinks 2-3 x a week in the past year [facility] Start: 1960 Sex assigned at Not on file [facility] Functional Status Date Assessment Result Facility 11-04-2024 Patient Health Quest ionnaire 2 item (PHQ-2) [Reported] [facility] Clinical Notes 02-25-2024 to 11-04-2024 Flavio Peacock MD - 11/04/2024 9:30 AM Michelle Tiwari NP - 06/30/2024 10:30 AM Sandra Ann NP - 06/04/2024 11:00 AM Honey Tiwari NP - 04/20/2024 10:30 AM EDT Note Date & Type Note Facility 11-04-2024 History of Presen t illness Narrative Images from the original note were not included. HPI Annual Exam Additional comments: Pt has ongoing issues with eczema on scalp and ears wondering if she could get rx to help Last edited by Ryanne Berry LPN on 11/04/2024 9:50 AM. Subjective Patient ID: Raquel Duarte is a 64 y.o. female who presents for Annual Exam (Pt has ongoing issues with eczema on scalp and ears wondering if she could get rx to help). Pt here for wellness Sees specialist for migraines Taking medications regularly No refills needed Due for mammogram-sending to [facility] Current Outpatient Medications on File Prior to Visit Medication Sig Dispense Refill OnabotulinumtoxinA (BOTOX IM) Inject into the shoulder, thigh, or buttocks SUMAtriptan (Imitrex) 100 MG tablet TAKE 1 TABLET BY MOUTH ONE TIME NEEDED AT ONSET OF HEADACHE; ( MAX TWO TIMES PER DAY AND NO MORE THAN THREE DAYS IN A WEEK) 9 tablet 11 topiramate (Topamax) 25 MG tablet Take 1 tablet (25 mg) by mouth at bedtime for 7 days, THEN 2 tablets (50 mg) at bedtime. 67 tablet 2 Ubrelvy 100 MG tablet Take 1 tablet by mouth if needed No current facility-administered medications on file prior to visit. I have reviewed and reconciled the history and medication list with the patient today. No Known Allergies Social History Tobacco Use Smoking status: Former Current packs/day: 0.00 Average packs/day: 0.5 packs/day for 15.0 years (7.5 ttl pk-yrs) Types: Cigarettes Quit date: 05/05/2012 Years since quittin.5 Smokeless tobacco: Never Vaping Use Vaping status: [...] Hx Past Medical History: Diagnosis Date Migraine Postmenopausal Postmenopausal osteoporosis (CMS/HCC) Vaginal discharge Past Surgical History: Procedure Laterality Date COLONOSCOPY 08/2013 COLONOSCOPY 01/2017 HYSTERECTOMY 03/2012 still has her ovaries MR ANGIOGRAM HEAD WO IV CONTRAST 07/14/2024 MR ANGIOGRAM HEAD WO IV CONTRAST Visit Vitals BP 124/70 Pulse 83 Ht 5' Wt 157 lb SpO2 99% BMI 30.66 kg/m OB Status Hysterectomy Smoking Status Former BSA 1.74 m Review of Systems Objective Physical Exam Constitutional: General: She is not in acute distress. Appearance: Normal appearance. She is well-developed. HENT: Head: Normocephalic and atraumatic. Eyes: General: No scleral icterus. Conjunctiva/sclera: Conjunctivae normal. Cardiovascular: Rate and Rhythm: Normal rate and regular rhythm. Heart sounds: Normal heart sounds. No murmur heard. Pulmonary: Effort: Pulmonary effort is normal. No respiratory distress. Breath sounds: Normal breath sounds. No wheezing, rhonchi or rales. Neurological: General: No focal deficit present. Mental Status: She is alert and oriented to person, place, and time. Psychiatric: Mood and Affect: Mood normal. Behavior: Behavior normal. Assessment/Plan Diagnoses and all orders for this visit: Wellness examination - TSH W/REFLEX TO FT4; Future - Comprehensive metabolic panel; Future - CBC and differential - Lipid panel; Future Psoriasis vulgaris (CMS/HCC) - mometasone (Elocon) 0.1 % ointment; Apply topically Daily Age-related osteoporosis without current pathological fracture (CMS/HCC) Migraine with aura and without status migrainosus, not intractable (CMS/HCC) - TSH W/REFLEX TO FT4; Future - Comprehensive metabolic panel; Future - CBC and differential - Lipid panel; Future No follow-ups on file. documented in this encounter [facility] 06-30-2024 History of Presen t illness Narrative Images from the original note [...] follow-ups on file. documented in this encounter [facility] 06-04-2024 History of Presen t illness Narrative Images from the original note [...] sterilized with 70% isopropanol. Buy/bill Lot # [id number] Dilution 200 units diluted into 4mL = 5 units per 0.1mL Procedure Qlbtmhni2oybzo Drying Tumbler Operator, J9fqzcl Drying Tumbler Operator, I8adbhp Frontalis, W02dloru(2 sites) Frontalis, A85wgces(2 sites) Temporalis, L 20 units (4 sites) Temporalis, R.20units(4 sites) Occipitalis, E48chxsi(3 sites) Occipitalis, A79yfhxb(3 sites) Paraspinalis cervicis, O98htypd(2 sites) Paraspinalis cervicis, Z80awamw(2 sites) Trapezius, W15boaxx(3 sites) Trapezius, S89glkdu(3 sites) Afnwg42afmwm(9 sites, see below) TOTAL UNITS [id number] WASTED0 The remaining 45 units were injected [...] without status migrainosus - G43.719 Procedure Codes 44814 Chemodenervation of neck muscles, bialteral: Modifiers: 50 92061 Destroy Nerve, Face Muscle, Modifiers: 50 , [...] and coordinating care. documented in this encounter [facility] 04-20-2024 History of Presen t illness Narrative Images from the original note [...] follow-ups on file. documented in this encounter [facility] 02-26-2024 History of Presen t illness Narrative Images from the original note [...] sterilized with 70% isopropanol. Buy/bill Lot # [id number] Dilution 200 units diluted into 4mL = 5 units per 0.1mL Procedure Procerus 5 units Drying Tumbler Operator, L 5 units Drying Tumbler Operator, R 5 units Frontalis, L 10 units [...] without status migrainosus - G43.719 Procedure Codes 46108 Chemodenervation of neck muscles, bialteral: Modifiers: 50 89078 Destroy Nerve, Face Muscle, Modifiers: 50 , 51 J0585 Botulinum toxin a per unit, Units: 200.00 Follow Up 2.5 months appointment; 3 months BTX ASSESSMENT AND PLAN: Diagnoses and all orders for this visit: Intractable chronic migraine without aura and without status migrainosus ([facility]) - Ambulatory Referral for Botox - galcanezumab [...] and coordinating care. documented in this encounter [facility] 02-25-2024 History of Presen t illness Narrative Reason for Appointment: Patient ID: [...] aura and without status migrainosus, not intractable ([facility]) 01/09/2023 Osteoporosis without current pathological fracture ([facility]) 01/09/2023 Psoriasis vulgaris ([facility]) 01/09/2023 Intractable chronic migraine without aura and without status migrainosus ([facility]) 2023 Resolved Ambulatory Problems Diagnosis Date Noted No Resolved Ambulatory Problems Past Medical History: Diagnosis Date Migraine ([facility]) Postmenopausal Postmenopausal osteoporosis ([facility]) Vaginal discharge HISTORY PAST MEDICAL HISTORY SOCIAL HISTORY Past Medical History: Diagnosis Date Migraine ([facility]/H[facility]) Postmenopausal Postmenopausal osteoporosis ([facility]) Vaginal discharge Social History Tobacco Use Smoking [...] Age of Onset Multiple myeloma Father Curtis Davilaxton Migraines Father Curtis Davilaxton Cervical cancer Sibling Migraines Sister Tiana Nelson [...] nursing note reviewed. Exam conducted with a band manager present. Vitals: Estimated body mass index is [...] Richie Mace DO documented in this encounter [facility] Evaluation note Diagnosis Acute non-recurrent pansinusitis- Primary documented in [...] [facility] Diagnosis Wellness examination- Primary Psoriasis vulgaris (CMS/HCC) Other psoriasis Age-related osteoporosis without current pathological fracture (CMS/HCC) Migraine with aura and without status migrainosus, not intractable (CMS/HCC) documented in this encounter [facility] Summary Purpose Family History No Family History Records FoundNo Family History Records Found Advance Directives No Advanced Directives Records FoundNo Advanced Directives Records Found Additional Source Comments INFORMATION SOURCE (unrecogn ized section and content) DATE CREATED AUTHOR 08/20/2022 [facility] DATE CREATED AUTHOR AUTHOR'S ORGANIZ ATION 11/05/2024 [facility] Care Teams (unrecognized sec tion and content) Senior Sql Dba Relationship Specialty Start Date End Date Flavio Peacock MD [address] [facility] [address] [place] [address] PCP - General Internal Medicine 11/26/22 Senior Sql Dba Relationship Specialty Start Date End Date Flavio Peacock MD [address] [facility] [address] [place] [address] PCP - General Internal Medicine 11/26/22 Senior Sql Dba Relationship Specialty Start Date End Date Flavio Peacock MD [address] [facility] [address] [place] [address] PCP - General Internal Medicine 11/26/22 Senior Sql Dba Relationship Specialty Start Date End Date Flavio Peacock MD [address] [facility] [address] [place] [address] PCP - General Internal Medicine 11/26/22 Senior Sql Dba Relationship Specialty Start Date End Date Flavio Peacock MD [address] [facility] [address] [place] [address] PCP - General Internal Medicine 11/26/22 Senior Sql Dba Relationship Specialty Start Date End Date Flavio Peacock MD [address] [facility] [address] [place] [address] PCP - General Internal Medicine 11/26/22 Senior Sql Dba Relationship Specialty Start Date End Date Flavio Peacock MD [address] [facility] [address] [place] [address] PCP - General Internal Medicine 11/26/22 Senior Sql Dba Relationship Specialty Start Date End Date Flavio Peacock MD [address] [facility] [address] [place] [address] PCP - General Internal Medicine 11/26/22 Senior Sql Dba Relationship Specialty Start Date End Date Flavio Peacock MD [address] [facility] [address] [place] [address] PCP - General Internal Medicine 11/26/22 Senior Sql Dba Relationship Specialty Start Date End Date Flavio Peacock MD [address] [facility] [address] [place] [address] PCP - General Internal Medicine 11/26/22 Reason for Visit (unrecogniz ed section and content) Reason Comments URI Reason Comments Well Women Visit Specialty Diagnoses / Procedures Referred By Raine sanchez Referred To Contact Neurology Diagnoses Intractable chronic migraine without aura and without status migrainosus (CMS/HCC) Su Ann, TANK TENDER [address] [place] [id number] Su nAn, TANK TENDER [address] [place] [id number] Referral ID Status Reason Start Date Expiration Date V isits Requested Visits Authorized [id number] Authorized 2023 06/22/2024 3 3 Reason Comments Annual Exam Pt has ongoing issue s with eczema on scalp and ears wondering if she could get rx to help FOR RECORDS PERTAINING TO PATIENTS WHO ARE [...] BE BASED ON THE PRIMARY CLINICAL RECORDS. [facility] [employer] provides no warranty or guarantee of the accuracy or completeness of information in this document.
== END 2024-11-22 10:22 | disposition home or self-care (01) ==
LOC: MAMMO 10:21
PROVIDERS: PCP Internal Medicine; Visit Provider Obstetrics & Gynecology
DX: Z12.31 Encounter for screening mammogram for malignant neoplasm of breast (principal); Z80.8 Family history of malignant neoplasm of other organs or systems
CPT/HCPCS: 77063; 77067